=== PATIENT | female | born 1950 | race Caucasian/White ===

== ENCOUNTER 2016-06-09 15:11 | Inpatient (IN) | payer MEDICARE ==
[2016-06-09] MEDS ORDERED: ACETAMINOPHEN TAB 500 MG TAB PO STA (16:23)
[2016-06-09] MEDS ORDERED: IBUPROFEN 600 MG TAB PO STA (16:23)
--- NOTE | 2016-06-09 16:34 | ED ---
General Adult HPI - General Chief complaint: Fever Stated complaint: Weakness, Vomiting Time Seen by Provider: 06/09/16 15:30 Source: patient, family, RN notes reviewed Mode of arrival: wheelchair - History of Present Illness Initial comments: This is a 65-year-old female who presents emergency department stating that she does not feel well. Patient states she hasn't been feeling well for 2 weeks. Patient states she's had about 2 weeks' worth of dysuria and more recently started to have chills. Patient states she did not take her temperature at home. Patient states chills she believes started about a week ago. Patient denies headache patient denies numbness weakness. Patient denies any lightheadedness dizziness or near-syncopal episode. Patient denies any chest pain palpation difficult breathing or shortness breath per patient denies any abdominal pain. Patient denies any back pain. Patient denies any redness or erythema erythema or areas of rash or lesions. Patient denies any diarrhea. - Related Data Home Medications Medication Instructions Recorded Confirmed Acetaminophen Tab [Tylenol Tab] 1,000 mg PO Q6HR PRN 06/09/16 06/09/16 Albuterol Sulfate [Proair Hfa] 1 - 2 puff INHALATION RT-Q6H PRN 06/09/16 Alendronate Sodium [Fosamax] 10 mg PO DAILY 06/09/16 06/09/16 Gabapentin [Neurontin] 300 mg PO TID PRN 06/09/16 06/09/16 Levocetirizine Dihydrochloride 5 mg PO HS 06/09/16 06/09/16 [Xyzal] Montelukast Sodium [Singulair] 10 mg PO HS 06/09/16 06/09/16 Omeprazole [PriLOSEC] 20 mg PO AC-BRKFST 06/09/16 06/09/16 Topiramate [Topamax] 25 mg PO HS 06/09/16 06/09/16 rOPINIRole HCL [Requip Xl] 12 mg PO HS 06/09/16 06/09/16 Allergies Allergy/AdvReac Type Severity Reaction Status Date / Time Penicillins Allergy Rash/Hives Verified 06/09/16 16:05 Review of Systems ROS Statement: Those systems with pertinent positive or pertinent negative responses have been documented in the HPI. ROS Other: All systems not noted in ROS Statement are negative. Past Medical History Past Medical History: COPD Additional Past Medical History / Comment(s): hernia, restless leg syndrome History of Any Multi-Drug Resistant Organisms: None Reported Past Surgical History: Hysterectomy Past Psychological History: No Psychological Hx Reported Smoking Status: Former smoker Past Alcohol Use History: Rare Past Drug Use History: None Reported General Exam - General Exam Comments Initial Comments: GENERAL: Patient is well-developed and well-nourished. Patient is nontoxic and well- hydrated and is in mild distress. ENT: Neck is soft and supple. No significant lymphadenopathy is noted. Oropharynx is clear. Moist mucous membranes. Neck has full range of motion without eliciting any pain. EYES: The sclera were anicteric and conjunctiva were pink and moist. Extraocular movements were intact and pupils were equal round and reactive to light. Eyelids were unremarkable. PULMONARY: Unlabored respirations. Good breath sounds bilaterally. No audible rales rhonchi or wheezing was noted. CARDIOVASCULAR: There is a regular rate and rhythm without any murmurs gallops or rubs. ABDOMEN: Soft and nontender with normal bowel sounds. No palpable organomegaly was noted. There is no palpable pulsatile mass. SKIN: Skin is clear with no lesions or rashes and otherwise unremarkable. NEUROLOGIC: Patient is alert and oriented x3. Cranial nerves II through XII are grossly intact. Motor and sensory are also intact. Normal speech, volume and content. Symmetrical smile. MUSCULOSKELETAL: Normal extremities with adequate strength and full range of motion. LYMPHATICS: No significant lymphadenopathy is noted PSYCHIATRIC: Normal psychiatric evaluation. Course Vital Signs 06/09/16 06/09/16 06/09/16 15:29 15:50 16:20 Temperature 100.7 F H Pulse Rate 112 H 102 H 98 Respiratory 18 Rate Blood Pressure 75/52 99/55 95/52 O2 Sat by Pulse 92 L 93 L 93 L Oximetry 06/09/16 06/09/16 06/09/16 16:50 17:30 18:12 Temperature 100.0 F H Pulse Rate 96 91 Respiratory 18 Rate Blood Pressure 120/56 105/58 O2 Sat by Pulse 98 94 L Oximetry 06/09/16 06/09/16 19:12 19:36 Temperature 98.2 F 97.9 F Pulse Rate 88 90 Respiratory 18 18 Rate Blood Pressure 88/55 106/57 O2 Sat by Pulse 95 Oximetry Medical Decision Making - Medical Decision Making EKG shows sinus tachycardia at 105 bpm MT interval is 134 QRS is 88 QT interval 342 QTC is 452. Patient's EKG shows no ST segment elevation or depression or T- wave abnormality is noted. - Lab Data Result diagrams: 06/09/16 16:03 06/09/16 16:03 Lab Results 06/09/16 06/09/16 06/09/16 Range/Units 16:03 16:03 16:03 WBC 10.0 (3.8-10.6) k/uL RBC 4.28 (3.80-5.40) m/uL Hgb 13.3 (11.4-16.0) gm/dL Hct 39.1 (34.0-46.0) % MCV 91.4 D (80.0-100.0) fL MCH 31.0 (25.0-35.0) pg MCHC 33.9 (31.0-37.0) g/dL RDW 14.8 (11.5-15.5) % Plt Count 171 (150-450) k/uL Neutrophils % 96 % Lymphocytes % 2 % Monocytes % 2 % Eosinophils % 0 % Basophils % 0 % Neutrophils # 9.5 H (1.3-7.7) k/uL Lymphocytes # 0.2 L (1.0-4.8) k/uL Monocytes # 0.2 (0-1.0) k/uL Eosinophils # 0.0 (0-0.7) k/uL Basophils # 0.0 (0-0.2) k/uL PT (9.0-12.0) sec INR (<1.1) APTT (22.0-30.0) sec Sodium 138 (137-145) mmol/L Potassium 3.7 (3.5-5.1) mmol/L Chloride 106 (98-107) mmol/L Carbon Dioxide 17 L (22-30) mmol/L Anion Gap 15 mmol/L BUN 18 H (7-17) mg/dL Creatinine 1.00 (0.52-1.04) mg/dL Est GFR (MDRD) Af Amer >60 (>60 ml/min/1.73 sqM) Est GFR (MDRD) Non-Af 55 (>60 ml/min/1.73 sqM) Glucose 119 H (74-99) mg/dL Plasma Lactic Acid Timothy 1.1 (0.7-2.0) mmol/L Calcium 9.3 (8.4-10.2) mg/dL Total Bilirubin 0.8 (0.2-1.3) mg/dL AST 34 (14-36) U/L ALT 33 (9-52) U/L Alkaline Phosphatase 68 (38-126) U/L Total Protein 7.2 (6.3-8.2) g/dL Albumin 4.1 (3.5-5.0) g/dL Urine Color Urine Appearance (Clear) Urine pH (5.0-8.0) Ur Specific [place] (1.001-1.035) Urine Protein (Negative) Urine Glucose (UA) (Negative) Urine Ketones (Negative) Urine Blood (Negative) Urine Nitrite (Negative) Urine Bilirubin (Negative) Urine Urobilinogen (<2.0) mg/dL Ur Leukocyte Esterase (Negative) Urine RBC (0-5) /hpf Urine WBC (0-5) /hpf Ur Squamous Epith Cells (0-4) /hpf Urine Bacteria (None) /hpf Hyaline Casts (0-2) /lpf Urine Mucus (None) /hpf Influenza Type A RNA (Not Detectd) Influenza Type B (PCR) (Not Detectd) 06/09/16 06/09/16 06/09/16 Range/Units 16:03 17:07 17:07 WBC (3.8-10.6) k/uL RBC (3.80-5.40) m/uL Hgb (11.4-16.0) gm/dL Hct (34.0-46.0) % MCV (80.0-100.0) fL MCH (25.0-35.0) pg MCHC (31.0-37.0) g/dL RDW (11.5-15.5) % Plt Count (150-450) k/uL Neutrophils % % Lymphocytes % % Monocytes % % Eosinophils % % Basophils % % Neutrophils # (1.3-7.7) k/uL Lymphocytes # (1.0-4.8) k/uL Monocytes # (0-1.0) k/uL Eosinophils # (0-0.7) k/uL Basophils # (0-0.2) k/uL PT 11.4 (9.0-12.0) sec INR 1.1 (<1.1) APTT 26.8 (22.0-30.0) sec Sodium (137-145) mmol/L Potassium (3.5-5.1) mmol/L Chloride (98-107) mmol/L Carbon Dioxide (22-30) mmol/L Anion Gap mmol/L BUN (7-17) mg/dL Creatinine (0.52-1.04) mg/dL Est GFR (MDRD) Af Amer (>60 ml/min/1.73 sqM) Est GFR (MDRD) Non-Af (>60 ml/min/1.73 sqM) Glucose (74-99) mg/dL Plasma Lactic Acid Timothy (0.7-2.0) mmol/L Calcium (8.4-10.2) mg/dL Total Bilirubin (0.2-1.3) mg/dL AST (14-36) U/L ALT (9-52) U/L Alkaline Phosphatase (38-126) U/L Total Protein (6.3-8.2) g/dL Albumin (3.5-5.0) g/dL Urine Color Yellow Urine Appearance Cloudy H (Clear) Urine pH 5.5 (5.0-8.0) Ur Specific [place] 1.021 (1.001-1.035) Urine Protein 1+ H (Negative) Urine Glucose (UA) Negative (Negative) Urine Ketones 2+ H (Negative) Urine Blood Small H (Negative) Urine Nitrite Negative (Negative) Urine Bilirubin Negative (Negative) Urine Urobilinogen 3.0 (<2.0) mg/dL Ur Leukocyte Esterase Moderate H (Negative) Urine RBC 9 H (0-5) /hpf Urine WBC 24 H (0-5) /hpf Ur Squamous Epith Cells 27 H (0-4) /hpf Urine Bacteria Few H (None) /hpf Hyaline Casts 5 H (0-2) /lpf Urine Mucus Moderate H (None) /hpf Influenza Type A RNA Not Detected (Not Detectd) Influenza Type B (PCR) Not Detected (Not Detectd) Disposition Clinical Impression: Hypotension, Weakness, Dehydration, UTI (urinary tract infection) Disposition: ADMITTED IP TO THIS [facility] Time of Disposition: 20:46
[2016-06-09] MEDS: SODIUM CHLORIDE 0.9% 500 ML IV SCH ×3 (16:38→17:25)
[2016-06-09 16:41] LABS: Basophils % (A) 0 %; CH 29.8; CHCM 32.8; Eosinophils % (A) 0 %; HCT 39.1 % (34.0-46.0); HDW 2.89; HGB 13.3 gm/dL (11.4-16.0); Luc # (Auto) 0.02; Luc % (Auto) 0; Lymphocytes # (A) 0.2 k/uL (1.0-4.8); Lymphocytes % (A) 2 %; MCHC 33.9 g/dL (31.0-37.0); Mean Platelet Volume 7.1; Monocytes # (A) 0.2 k/uL (0-1.0); Monocytes % (A) 2 %; Neutrophils # (A) 9.5 k/uL (1.3-7.7); Neutrophils % (A) 96 %; RBC 4.28 m/uL (3.80-5.40); RDW 14.8 % (11.5-15.5); WBC (Perox) 10.21
[2016-06-09 16:42] LABS: MCV 91.4 fL (80.0-100.0)
[2016-06-09 16:46] LABS: INR 1.1 (<1.1)
[2016-06-09 16:47] LABS: Partial Thromboplastin Time 26.8 sec (22.0-30.0); Prothrombin Time 11.4 sec (9.0-12.0)
[2016-06-09 16:48] LABS: ALT 33 U/L (9-52); AST 34 U/L (14-36); Alkaline Phosphatase 68 U/L (38-126); Anion Gap 15 mmol/L; Blood Urea Nitrogen 18 mg/dL (7-17); Calcium 9.3 mg/dL (8.4-10.2); Carbon Dioxide 17 mmol/L (22-30); Chloride 106 mmol/L (98-107); Glucose 119 mg/dL (74-99); Non-African American GFR(MDRD) 55 (>60 ml/min/1.73 sqM); Potassium 3.7 mmol/L (3.5-5.1); Sodium 138 mmol/L (137-145); Total Bilirubin 0.8 mg/dL (0.2-1.3); Total Protein 7.2 g/dL (6.3-8.2)
[2016-06-09 17:19] LABS: Appearance,Urine Cloudy (Clear); Bacteria,Urine Few /hpf; Bilirubin,Urine Negative (Negative); Glucose,Urine (UA) Negative (Negative); Ketones,Urine 2+ (Negative); Leukocyte Esterase,Urine Moderate (Negative); Mucus,Urine Moderate /hpf; Nitrite,Urine Negative (Negative); PH, Urine 5.5 (5.0-8.0); Particle Count 13490; Protein,Urine 1+ (Negative); RBC,Urine 9 /hpf (0-5); Specific Gravity,Urine 1.021 (1.001-1.035); Squamous Epithelial Cell,Urine 27 /hpf (0-4); UA Billing (MACRO vs. MICRO) MICRO; WBC,Urine 24 /hpf (0-5)
[2016-06-09] MEDS ORDERED: SODIUM CHLORIDE 0.9% 500 ML IV ONE (19:08)
--- NOTE | 2016-06-09 19:50 | XR ---
EXAMINATION TYPE: XR chest 2V DATE OF EXAM: 06/09/2016 7:44 PM COMPARISON: NONE HISTORY: Difficulty in breathing. TECHNIQUE: Frontal and lateral views of the chest are obtained. FINDINGS: There is chronic parenchymal change without suspicious focal air space opacity, pleural ef fusion, or pneumothorax seen. Nodularity left lung bases hyperdense suspect calcified granulomas, sim ilar lesion seen right hilar level. The cardiac silhouette size is within normal limits with atherosc lerotic thoracic aorta. The osseous structures are somewhat demineralized. IMPRESSION: Chronic parenchymal changes without acute pulmonary process.
[2016-06-09] MEDS ORDERED: HYDROmorphone 1 MG/ML 1 ML SYRINGE IVP STA (20:37)
[2016-06-09] MEDS: SODIUM CHLORIDE 0.9% 1,000 ML IV ONE (20:48)
[2016-06-09 22:10] VITALS: BMI 22.1
[2016-06-09] MEDS ORDERED: ALBUTEROL NEBULIZED 2.5 MG/3 ML INHALATION PRN (22:37)
[2016-06-09] MEDS ORDERED: ACETAMINOPHEN TAB 500 MG TAB PO PRN (22:37)
[2016-06-09] MEDS ORDERED: LORATADINE 10 MG TAB PO SCH (22:45)
[2016-06-09] MEDS: TOPIRAMATE 25 MG TAB PO SCH (23:42)
[2016-06-09] MEDS: rOPINIRole HCL 4 MG TABLET PO SCH (23:42)
[2016-06-09] MEDS: MONTELUKAST 10 MG TAB PO SCH (23:42)
[2016-06-10] MEDS: PANTOPRAZOLE 40 MG TABLET PO SCH (07:19)
[2016-06-10] MEDS ORDERED: ALENDRONATE SODIUM 10 MG PO SCH (09:00)
[2016-06-10] MEDS ORDERED: ONDANSETRON 4 MG/2 ML VIAL IVP PRN (09:57)
[2016-06-10] MEDS ORDERED: IV VANCOMYCIN PER PHARMACY 1 EACH MISC MISCELLANE PRN ×2 (09:58→11:00)
[2016-06-10] MEDS: rOPINIRole HCL 4 MG TABLET PO SCH ×3 (10:08→20:42)
[2016-06-10] MEDS ORDERED: VANCOMYCIN 1,250 MG in SODIUM CHLORIDE 0.9% 250 ML IVPB ONE (11:00)
[2016-06-10] MEDS ORDERED: SODIUM CHLORIDE 0.9% IV ONE (11:00)
[2016-06-10] MEDS: SODIUM CHLORIDE 0.9% 1,000 ML IV ONE (11:26)
[2016-06-10] MEDS: ACETAMINOPHEN TAB 325 MG TAB PO PRN ×3 (11:28→23:15)
--- NOTE | 2016-06-10 11:56 | P.HPIM ---
History of Present Illness H&P Date: 06/10/16 Chief Complaint: Not feeling well This is a 65-year-old female with past medical history noted below who presented to the emergency room with a chief complaint of not feeling well. Today when I saw her, patient appeared restless. She said that she does not feel well at all. When I asked her to pinpoint what's bothering her particular she never gave me a straight answers. Patient said that for the past week or 2 she was feeling progressively weak. Her main concern was increasing urinary frequency. She was also having chills and episodes when she gets too hot and then to cold. She denies any significant cough. No abdominal pain. She said that she is mostly constipated and does not have regular bowel movement. She was evaluated in the emergency room and was found to have a low-grade temperature on presentation. Urinalysis was positive for underlying UTI but unfortunately was not a clean catch urine. Patient was admitted to the hospital and started on IV ceftriaxone. This morning she was noted to be very warm and her temperature was recorded to be 102.2. Blood culture came back positive for gram-positive cocci in clusters. Review of Systems Review of system: 14 points review of systems were obtained and were negative except to what were mentioned in the HPI. Past Medical History Past Medical History: COPD Additional Past Medical History / Comment(s): hernia, restless leg syndrome History of Any Multi-Drug Resistant Organisms: None Reported Past Surgical History: Hysterectomy Past Psychological History: No Psychological Hx Reported Smoking Status: Former smoker Past Alcohol Use History: Rare Past Drug Use History: None Reported - Past Family History Mother Family Medical History: Cancer Medications and Allergies Home Medications Medication Instructions Recorded Confirmed Type Acetaminophen Tab [Tylenol Tab] 1,000 mg PO Q6HR PRN 06/09/16 06/09/16 History Albuterol Sulfate [Proair Hfa] 1 - 2 puff INHALATION RT-Q6H PRN 06/09/16 History Alendronate Sodium [Fosamax] 10 mg PO DAILY 06/09/16 06/09/16 History Gabapentin [Neurontin] 300 mg PO TID PRN 06/09/16 06/09/16 History Levocetirizine Dihydrochloride 5 mg PO HS 06/09/16 06/09/16 History [Xyzal] Montelukast Sodium [Singulair] 10 mg PO HS 06/09/16 06/09/16 History Omeprazole [PriLOSEC] 20 mg PO AC-BRKFST 06/09/16 06/09/16 History Topiramate [Topamax] 25 mg PO HS 06/09/16 06/09/16 History rOPINIRole HCL [Requip Xl] 12 mg PO HS 06/09/16 06/09/16 History Allergies Allergy/AdvReac Type Severity Reaction Status Date / Time Penicillins Allergy Rash/Hives Verified 06/09/16 16:05 Physical Exam Vitals: Vital Signs Temp Pulse Pulse Resp BP BP Pulse Ox 06/10/16 11:19 102.1 F H 110 H 16 147/78 92 L 06/10/16 09:50 98.8 F 110 H 16 142/76 94 L 06/10/16 04:00 98.6 F 96 16 100/51 93 L 06/10/16 00:00 97.0 F L 100 16 106/64 98 06/09/16 21:34 98.6 F 88 18 100/52 100 06/09/16 21:10 88 20 90/56 98 06/09/16 21:05 99.2 F 89 18 100/61 97 Intake and Output 06/09/16 06/10/16 06/10/16 22:59 06:59 14:59 Intake Total 2268 Balance 2268 Intake: IV 1000 Sodium Chloride 0.9% ( 1000 Dehp Star 1,000 ml @ 999 mls/hr IV .Q1H1M ONE Rx#: [id number] Intake, IV Titration 1150 Amount Sodium Chloride 0.9% 1, 800 000 ml @ 100 mls/hr IV . Q10H ONE Rx#:[id number] Vancomycin 1,250 mg In 250 Sodium Chloride 0.9% 250 ml @ 125 mls/hr IVPB Q16H [facility] Rx#:[id number] cefTRIAXone 1,000 mg In 100 Sodium Chloride 0.9% 50 ml @ 100 mls/hr IVPB Q24HR [facility] Rx#:[id number] Oral 118 Other: Voiding Method Toilet # Voids 1 2 Weight 64 kg 64.2 kg General: The patient is awake and alert, in no distress, and does not appear acutely ill. Eye: extra-ocular movements are intact; there is normal conjunctiva bilaterally. . Neck: The neck is supple, there is no tenderness or JVD. Cardiovascular: Normal S1-S2, no S3-S4, no murmurs. Respiratory: Lungs clear to auscultation bilaterally with no wheezes rhonchi or rales. Gastrointestinal: Abdomen is soft, nontender, nondistended, with no organomegaly. . Musculoskeletal: Normal ROM, no tenderness, There is no pedal edema. Neurological: There are no obvious motor or sensory deficits. Speech is normal. Skin: Skin is warm and dry and no rashes or lesions are noted. Results CBC & Chem 7: 06/09/16 16:03 06/09/16 16:03 Thrombosis Risk Factor Assmnt - Choose All That Apply Each Factor Represents 1 point: Abnormal pulmonary function (COPD) Each Risk Factor Represents 2 Points: Age 61-74 years Thrombosis Risk Factor Assessment Total Risk Factor Score: 3 Thrombosis Risk Factor Assessment Level: Moderate Risk Assessment and Plan Plan: 1. Sepsis: Without septic shock. Lactic acid was normal. Most likely sources underlying UTI. Currently on IV ceftriaxone awaiting urine culture. 2. Bacteremia, with gram-positive cocci in cluster. Repeat blood culture ordered. Currently on IV vancomycin. Unclear if this is contamination awaiting cultures to finalize 3. Mild intermittent asthma: With no evidence of exacerbation 4. Osteoporosis 5. GI and DVT prophylaxis Today, I reviewed her medication list and lab work results. I ordered 0.9 normal saline 1 L IV bolus. Continue antibiotic with IV ceftriaxone and vancomycin awaiting cultures to finalize. Infectious disease consulted for further evaluation. Chest x-ray was unremarkable. Influenza screening was negative as well.
[2016-06-10] MEDS: GABAPENTIN 300 MG CAP PO PRN (17:43)
[2016-06-10] MEDS: MONTELUKAST 10 MG TAB PO SCH (20:42)
[2016-06-10] MEDS: TOPIRAMATE 25 MG TAB PO SCH (20:42)
[2016-06-10] MEDS: HEPARIN SODIUM,PORCINE 5,000 UNIT/ML 1 ML VIAL SQ SCH (20:42)
--- NOTE | 2016-06-10 22:42 | P.CONS ---
History of Present Illness - Reason for Consult Consult date: 06/10/16 - Chief Complaint Fever - History of Present Illness 65-year-old woman who is somewhat of a poor historian presents emergency center not feeling well for the last several weeks. Apparently she has had some difficulties with fever and chills throughout this time frame. She thinks she' s had some dysuria. She's had some shortness of breath with some cough. She's felt quite poorly with difficulty performing her ADLs. Apparently her family came by and insisted that she seek medical care. Evidence of Temperature 102.2 and Presented to the Emergency Center. At this time she continues to feel poorly. She remains weak. She's been able to eat without nausea or emesis. She denying hematemesis or melena. Denies abdominal pain. Review of Systems HEENT:Denies headache or acute visual change. Denies sinus or mouth discomforts. Denies neck stiffness or pain. Denies significant oral cavity pain. Denies difficulty on swallowing. Lungs: Mild shortness of breath with cough, sputum production or hemoptysis Cardiovascular: Denies significant shortness of breath, chest pain, chest wall pain, orthopnea, dyspnea on exertion, syncope Gastrointestinal:Denies nausea, vomiting, diarrhea, constipation, hematemesis, melena, hematochezia. No no significant change of bowel habit noticed. Musculoskeletal: denies significant myalgias or arthralgias. No new joint swelling. Denies new back pain. Skin: Denies new rash or lesions. No new ulcers or wounds are related.. Neuro: Denies headache or visual change. Denies any new onset weakness or difficulty with ambulation. Denies falls or seizures. Psychiatric:Denies anxiety or depression. Endocrine: Significant fatigue but no weight gain Past Medical History Past Medical History: COPD Additional Past Medical History / Comment(s): hernia, restless leg syndrome History of Any Multi-Drug Resistant Organisms: None Reported Past Surgical History: Hysterectomy Past Psychological History: No Psychological Hx Reported Additional Psychological History / Comment(s): lives in the family home with her . lifelong nonsmoker. 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 No animal exposures. No travel Smoking Status: Former smoker Past Alcohol Use History: Rare Past Drug Use History: None Reported - Past Family History Mother Family Medical History: Cancer Medications and Allergies Home Medications and Allergies Comment(s): Current Medications Acetaminophen (Tylenol Tab) 650 mg PO Q6HR PRN PRN Reason: Fever and/ or Pain Last Admin: 06/10/16 17:42 Dose: 650 mg Albuterol Sulfate (Ventolin Nebulized) 2.5 mg INHALATION RT-Q6H PRN PRN Reason: Shortness Of Breath Gabapentin (Neurontin) 300 mg PO TID PRN PRN Reason: Pain Last Admin: 06/10/16 17:43 Dose: 300 mg Heparin Sodium (Porcine) (Heparin) 5,000 unit SQ Q12HR [facility] Last Admin: 06/10/16 20:42 Dose: 5,000 unit Ceftriaxone Sodium 1,000 mg/ (Sodium Chloride) 50 mls @ 100 mls/hr IVPB Q24HR [facility] Last Admin: 06/10/16 10:08 Dose: 100 mls/hr Vancomycin HCl 1,250 mg/ (Sodium Chloride) 250 mls @ 125 mls/hr IVPB Q16H [facility] Montelukast Sodium (Singulair) 10 mg PO [facility] Last Admin: 06/10/16 20:42 Dose: 10 mg Non-Formulary Medication (Alendronate Sodium [Fosamax]) 10 mg PO DAILY [facility] Ondansetron HCl (Zofran) 4 mg IVP Q6HR PRN PRN Reason: Nausea And Vomiting Pantoprazole Sodium (Protonix) 40 mg PO AC-BRKFST [facility] Last Admin: 06/10/16 07:19 Dose: 40 mg Ropinirole HCl (Requip) 4 mg PO TID [facility] Last Admin: 06/10/16 20:42 Dose: 4 mg Topiramate (Topamax) 25 mg PO [facility] Last Admin: 06/10/16 20:42 Dose: 25 mg Home Medications Medication Instructions Recorded Confirmed Type Acetaminophen Tab [Tylenol Tab] 1,000 mg PO Q6HR PRN 06/09/16 06/09/16 History Albuterol Sulfate [Proair Hfa] 1 - 2 puff INHALATION RT-Q6H PRN 06/09/16 History Alendronate Sodium [Fosamax] 10 mg PO DAILY 06/09/16 06/09/16 History Gabapentin [Neurontin] 300 mg PO TID PRN 06/09/16 06/09/16 History Levocetirizine Dihydrochloride 5 mg PO HS 06/09/16 06/09/16 History [Xyzal] Montelukast Sodium [Singulair] 10 mg PO HS 06/09/16 06/09/16 History Omeprazole [PriLOSEC] 20 mg PO AC-BRKFST 06/09/16 06/09/16 History Topiramate [Topamax] 25 mg PO HS 06/09/16 06/09/16 History rOPINIRole HCL [Requip Xl] 12 mg PO HS 06/09/16 06/09/16 History Allergies Allergy/AdvReac Type Severity Reaction Status Date / Time Penicillins Allergy Rash/Hives Verified 06/09/16 16:05 Physical Exam Vitals: Vital Signs Temp Pulse Resp BP Pulse Ox 06/10/16 17:42 102 F H 06/10/16 15:15 100.2 F H 100 16 142/72 93 L 06/10/16 12:16 16 06/10/16 11:19 102.1 F H 110 H 16 147/78 92 L 06/10/16 09:50 98.8 F 110 H 16 142/76 94 L 06/10/16 04:00 98.6 F 96 16 100/51 93 L 06/10/16 00:00 97.0 F L 100 16 106/64 98 Intake and Output 06/10/16 06/10/16 06/10/16 06:59 14:59 22:59 Intake Total 2268 125 Output Total 200 400 Balance 2068 -275 Intake: IV 1000 Sodium Chloride 0.9% ( 1000 Dehp Star 1,000 ml @ 999 mls/hr IV .Q1H1M [facility] Rx#: [id number] Intake, IV Titration 1150 Amount Sodium Chloride 0.9% 1, 800 000 ml @ 100 mls/hr IV . Q10H [facility] Rx#:[id number] Vancomycin 1,250 mg In 250 Sodium Chloride 0.9% 250 ml @ 125 mls/hr IVPB Q16H [facility] Rx#:[id number] cefTRIAXone 1,000 mg In 100 Sodium Chloride 0.9% 50 ml @ 100 mls/hr IVPB Q24HR [facility] Rx#:[id number] Oral 118 125 Output: Urine 200 400 Other: Voiding Method Toilet Toilet # Voids 1 2 Weight 64.2 kg 65-year-old woman who looks older than her stated age. Appears mildly ill and somewhat restless HEENT: Anicteric conjunctiva are pink and moist nasal mucosa grossly intact without significant lesions, there is no thrush. Full denture Neck: The neck is supple without significant lymphadenopathy or thyromegaly. Lungs: Symmetrical air entry is noted. Few expiratory wheezes are heard. No bronchial sounds. No dullness no egophony or no change in tactile fremitus Heart: Regular rate and rhythm with an audible S1-S2, no S3 positive S4. There is no significant murmur click or rub, PMI was nondisplaced. Abdomen: Obese, Positive bowel sounds soft and nontender without palpable masses or organomegaly. There was no guarding or rebound. Extremities: The upper extremities have excellent pulses they are symmetric, no significant petechiae or telangiectasia. No splinter hemorrhages were noted. The lower extremities have minimal trace edema. The peripheral pulses were 2+ and symmetric. Neuro: Awake alert oriented to person place and time. There are no acute new gross focal sensory motor deficits. She seems to be a bit agitated Results CBC & Chem 7: 06/09/16 16:03 06/09/16 16:03 Labs: Laboratory Results WBC 10.0 k/uL (3.8-10.6) 06/09/16 16:03 RBC 4.28 m/uL (3.80-5.40) 06/09/16 16:03 Hgb 13.3 gm/dL (11.4-16.0) 06/09/16 16:03 Hct 39.1 % (34.0-46.0) 06/09/16 16:03 MCV 91.4 fL (80.0-100.0) D 06/09/16 16:03 MCH 31.0 pg (25.0-35.0) 06/09/16 16:03 MCHC 33.9 g/dL (31.0-37.0) 06/09/16 16:03 RDW 14.8 % (11.5-15.5) 06/09/16 16:03 Plt Count 171 k/uL (150-450) 06/09/16 16:03 Neutrophils % 96 % 06/09/16 16:03 Lymphocytes % 2 % 06/09/16 16:03 Monocytes % 2 % 06/09/16 16:03 Eosinophils % 0 % 06/09/16 16:03 Basophils % 0 % 06/09/16 16:03 Neutrophils # 9.5 k/uL (1.3-7.7) H 06/09/16 16:03 Lymphocytes # 0.2 k/uL (1.0-4.8) L 06/09/16 16:03 Monocytes # 0.2 k/uL (0-1.0) 06/09/16 16:03 Eosinophils # 0.0 k/uL (0-0.7) 06/09/16 16:03 Basophils # 0.0 k/uL (0-0.2) 06/09/16 16:03 PT 11.4 sec (9.0-12.0) 06/09/16 16:03 INR 1.1 (<1.1) 06/09/16 16:03 APTT 26.8 sec (22.0-30.0) 06/09/16 16:03 Sodium 138 mmol/L (137-145) 06/09/16 16:03 Potassium 3.7 mmol/L (3.5-5.1) 06/09/16 16:03 Chloride 106 mmol/L (98-107) 06/09/16 16:03 Carbon Dioxide 17 mmol/L (22-30) L 06/09/16 16:03 Anion Gap 15 mmol/L 06/09/16 16:03 BUN 18 mg/dL (7-17) H 06/09/16 16:03 Creatinine 1.00 mg/dL (0.52-1.04) 06/09/16 16:03 Est GFR (MDRD) Af Amer >60 (>60 ml/min/1.73 sqM) 06/09/16 16:03 Est GFR (MDRD) Non-Af 55 (>60 ml/min/1.73 sqM) 06/09/16 16:03 Glucose 119 mg/dL (74-99) H 06/09/16 16:03 Plasma Lactic Acid Timothy 1.4 mmol/L (0.7-2.0) 06/10/16 11:22 Calcium 9.3 mg/dL (8.4-10.2) 06/09/16 16:03 Total Bilirubin 0.8 mg/dL (0.2-1.3) 06/09/16 16:03 AST 34 U/L (14-36) 06/09/16 16:03 ALT 33 U/L (9-52) 06/09/16 16:03 Alkaline Phosphatase 68 U/L (38-126) 06/09/16 16:03 Total Protein 7.2 g/dL (6.3-8.2) 06/09/16 16:03 Albumin 4.1 g/dL (3.5-5.0) 06/09/16 16:03 Urine Color Yellow 06/09/16 17:07 Urine Appearance Cloudy (Clear) H 06/09/16 17:07 Urine pH 5.5 (5.0-8.0) 06/09/16 17:07 Ur Specific [place] 1.021 (1.001-1.035) 06/09/16 17:07 Urine Protein 1+ (Negative) H 06/09/16 17:07 Urine Glucose (UA) Negative (Negative) 06/09/16 17:07 Urine Ketones 2+ (Negative) H 06/09/16 17:07 Urine Blood Small (Negative) H 06/09/16 17:07 Urine Nitrite Negative (Negative) 06/09/16 17:07 Urine Bilirubin Negative (Negative) 06/09/16 17:07 Urine Urobilinogen 3.0 mg/dL (<2.0) 06/09/16 17:07 Ur Leukocyte Esterase Moderate (Negative) H 06/09/16 17:07 Urine RBC 9 /hpf (0-5) H 06/09/16 17:07 Urine WBC 24 /hpf (0-5) H 06/09/16 17:07 Ur Squamous Epith Cells 27 /hpf (0-4) H 06/09/16 17:07 Urine Bacteria Few /hpf (None) H 06/09/16 17:07 Hyaline Casts 5 /lpf (0-2) H 06/09/16 17:07 Urine Mucus Moderate /hpf (None) H 06/09/16 17:07 Influenza Type A RNA Not Detected (Not Detectd) 06/09/16 17:07 Influenza Type B (PCR) Not Detected (Not Detectd) 06/09/16 17:07 Microbiology 06/09/16 16:03 Blood Blood Culture Gram Stain - Preliminary 06/09/16 16:03 Blood Blood Culture - Preliminary 06/09/16 17:07 Urine,Clean Catch Urine Culture - Preliminary Assessment and Plan (1) Sepsis Narrative/Plan: 65-year-old woman who has a history of underlying lung disease presents to Hospital not feeling well. His related that over the last 2 weeks she's been not feeling well. She's been a bit agitated and having increasing weakness. Started to have some troubles with her ADLs. The appears her family suggested she come to Hospital she had 102.2 fever. Workup has been initiated. In is on the blood cultures positive for gram-positive cocci and urine culture is pending. Urinalysis did have contamination with many squamous cells. The patient does have a history of prior urinary infections. She does not have evidence of renal failure. Chest x-ray fails reveal evidence of pneumonia At this time patient appears to have sepsis possibly urinary source since her is somewhat of a history of this. Blood culture is positive for gram-positive cocci and unclear if this is enterococcus staph or strep. Well pending vancomycin has been added. She also was placed on Rocephin because there is concerns to gram-negative urinary infection, she does believe she's had prior treatments in the past and would be concerned about fluoroquinolone resistant E. coli or similar. If she does not improve will plan ultrasounding her kidneys to make sure that there is not an obstructive process occurring Follow blood cultures been requested to ensure this is rapidly. His potential to contamination. If however it turns out to be staph aureus within also consider echocardiogram has not been done recently. Status: Acute (2) Gram-positive bacteremia Status: Acute (3) Fever Status: Acute (4) UTI (urinary tract infection) Status: Acute
[2016-06-11] MEDS ORDERED: VANCOMYCIN 1,250 MG in SODIUM CHLORIDE 0.9% 250 ML IVPB SCH ×2
[2016-06-11] MEDS: ACETAMINOPHEN TAB 325 MG TAB PO PRN ×3 (05:46→23:40)
[2016-06-11] MEDS: PANTOPRAZOLE 40 MG TABLET PO SCH (05:46)
[2016-06-11 06:09] LABS: Basophils % (A) 0 %; CH 30.3; CHCM 31.9; Eosinophils % (A) 0 %; HCT 37.4 % (34.0-46.0); HDW 2.99; HGB 11.7 gm/dL (11.4-16.0); Hypochromasia Slight; Luc # (Auto) 0.08; Luc % (Auto) 2; Lymphocytes # (A) 0.6 k/uL (1.0-4.8); Lymphocytes % (A) 10 %; MCH 29.8 pg (25.0-35.0); MCHC 31.2 g/dL (31.0-37.0); MCV 95.5 fL (80.0-100.0); Mean Platelet Volume 7.3; Monocytes # (A) 0.1 k/uL (0-1.0); Monocytes % (A) 2 %; Neutrophils # (A) 4.6 k/uL (1.3-7.7); Neutrophils % (A) 86 %; RBC 3.91 m/uL (3.80-5.40); RDW 15.2 % (11.5-15.5); WBC 5.4 k/uL (3.8-10.6); WBC (Perox) 6.24
[2016-06-11 06:15] LABS: Anion Gap 9 mmol/L; Blood Urea Nitrogen 13 mg/dL (7-17); Calcium 8.1 mg/dL (8.4-10.2); Carbon Dioxide 19 mmol/L (22-30); Chloride 110 mmol/L (98-107); Glucose 89 mg/dL (74-99); Non-African American GFR(MDRD) >60 (>60 ml/min/1.73 sqM); Potassium 3.8 mmol/L (3.5-5.1); Sodium 138 mmol/L (137-145)
[2016-06-11] MEDS: rOPINIRole HCL 4 MG TABLET PO SCH ×3 (08:44→21:54)
[2016-06-11] MEDS: HEPARIN SODIUM,PORCINE 5,000 UNIT/ML 1 ML VIAL SQ SCH ×2 (08:44→21:25)
[2016-06-11] MEDS ORDERED: KETOROLAC 30 MG/ML 1 ML VIAL IVP STA (11:45)
[2016-06-11] MEDS: VANCOMYCIN 1,250 MG in SODIUM CHLORIDE 0.9% 250 ML IVPB SCH ×2 (12:07→23:38)
[2016-06-11] MEDS: LORATADINE 10 MG TAB PO SCH (12:08)
--- NOTE | 2016-06-11 12:53 | P.PN ---
Subjective Patient is feeling slightly better today. She continued to spike fever all day yesterday. Objective - Vital Signs Vital signs: Vital Signs Temp 96.6 F L 06/11/16 08:40 Pulse 110 H 06/11/16 12:00 Resp 18 06/11/16 12:00 BP 160/92 06/11/16 12:00 Pulse Ox 91 L 06/11/16 12:00 Intake & Output 06/10/16 06/11/16 06/11/16 18:59 06:59 18:59 Intake Total 2393 1850 818 Output Total 600 800 600 Balance 1793 1050 218 Weight 65.3 kg Intake: IV 1000 1850 250 Sodium Chloride 0.9% ( 1000 Dehp Star 1,000 ml @ 999 mls/hr IV .Q1H1M [facility] Rx#: [id number] Sodium Chloride 0.9% 1, 1600 000 ml @ 100 mls/hr IV . Q10H [facility] Rx#:[id number] Vancomycin 1,250 mg In 250 250 Sodium Chloride 0.9% 250 ml @ 125 mls/hr IVPB ONCE [facility] Rx#:[id number] Intake, IV Titration 1150 50 Amount Sodium Chloride 0.9% 1, 800 000 ml @ 100 mls/hr IV . Q10H [facility] Rx#:[id number] Vancomycin 1,250 mg In 250 Sodium Chloride 0.9% 250 ml @ 125 mls/hr IVPB Q16H [facility] Rx#:[id number] cefTRIAXone 1,000 mg In 100 50 Sodium Chloride 0.9% 50 ml @ 100 mls/hr IVPB Q24HR [facility] Rx#:[id number] Oral 243 518 Output: Urine 600 800 600 Other: Voiding Method Toilet Toilet Toilet # Voids 2 - Exam General: The patient is awake and alert, in no distress Eye: there is normal conjunctiva bilaterally. Neck: The neck is supple, there is no JVD. Cardiovascular: Normal S1-S2, no S3-S4, no murmurs. Respiratory: Lungs clear to auscultation bilaterally Gastrointestinal: Abdomen is soft, nontender Musculoskeletal: There is no pedal edema. Neurological:. Speech is normal. Skin: Skin is warm and dry - Labs CBC & Chem 7: 06/11/16 05:48 06/11/16 05:48 Labs: Abnormal Lab Results - Last 24 Hours (Table) 06/11/16 06/11/16 Range/Units 05:48 05:48 Plt Count 101 L (150-450) k/uL Lymphocytes # 0.6 L (1.0-4.8) k/uL Chloride 110 H (98-107) mmol/L Carbon Dioxide 19 L (22-30) mmol/L Calcium 8.1 L (8.4-10.2) mg/dL Microbiology - Last 24 Hours (Table) 06/10/16 07:53 Blood Culture Gram Stain - Preliminary Blood 06/10/16 07:53 Blood Culture - Preliminary Blood Assessment and Plan Plan: 1. Sepsis: Without septic shock. Lactic acid was normal. 2. Bacteremia, with gram-positive cocci in cluster. Repeat blood culture remain positive yesterday. I would obtain another set today. exact source is unclear. Possibly underlying UTI. Would obtain echocardiogram for further evaluation. Appreciate infectious disease recommendations. continue broad spectrum antibiotic until cultures are finalized 3. Mild intermittent asthma: With no evidence of exacerbation 4. Osteoporosis 5. GI and DVT prophylaxis Today, I reviewed her medication list and lab work results. Continue antibiotic as recommended by infectious disease awaiting cultures to finalize. Chest x- ray was unremarkable. Influenza screening was negative as well. patient denies any history of IV drug use or recent dental procedures.
[2016-06-11] MEDS: TOPIRAMATE 25 MG TAB PO SCH (21:25)
[2016-06-11] MEDS: MONTELUKAST 10 MG TAB PO SCH (21:25)
--- NOTE | 2016-06-11 22:58 | P.PN ---
Subjective Principal diagnosis: Fever 65-year-old woman who is somewhat of a poor historian presents emergency center not feeling well for the last several weeks. Apparently she has had some difficulties with fever and chills throughout this time frame. She thinks she' s had some dysuria. She's had some shortness of breath with some cough. She's felt quite poorly with difficulty performing her ADLs. Apparently her family came by and insisted that she seek medical care. Evidence of Temperature 102.2 and Presented to the Emergency Center. At this time she continues to feel poorly. She remains weak. She's been able to eat without nausea or emesis. She denying hematemesis or melena. Denies abdominal pain. Objective - Vital Signs Vital signs: Vital Signs Temp 100 F H 06/11/16 16:21 Pulse 100 06/11/16 19:04 Resp 18 06/11/16 19:04 BP 151/77 06/11/16 16:21 Pulse Ox 94 L 06/11/16 16:21 Intake & Output 06/11/16 06/11/16 06/12/16 06:59 18:59 06:59 Intake Total 1850 1418 250 Output Total 800 600 Balance 1050 818 250 Weight 65.3 kg Intake: IV 1850 250 Sodium Chloride 0.9% 1, 1600 000 ml @ 100 mls/hr IV . Q10H [facility] Rx#:[id number] Vancomycin 1,250 mg In 250 250 Sodium Chloride 0.9% 250 ml @ 125 mls/hr IVPB ONCE [facility] Rx#:[id number] Intake, IV Titration 50 Amount cefTRIAXone 1,000 mg In 50 Sodium Chloride 0.9% 50 ml @ 100 mls/hr IVPB Q24HR [facility] Rx#:[id number] Oral 1118 250 Output: Urine 800 600 Other: Voiding Method Toilet Toilet Toilet # Voids 1 - Exam 65-year-old woman who looks older than her stated age. Appears mildly ill and somewhat restless HEENT: Anicteric conjunctiva are pink and moist nasal mucosa grossly intact without significant lesions, there is no thrush. Full denture Neck: The neck is supple without significant lymphadenopathy or thyromegaly. Lungs: Symmetrical air entry is noted. Few expiratory wheezes are heard. No bronchial sounds. No dullness no egophony or no change in tactile fremitus Heart: Regular rate and rhythm with an audible S1-S2, no S3 positive S4. There is no significant murmur click or rub, PMI was nondisplaced. Abdomen: Obese, Positive bowel sounds soft and nontender without palpable masses or organomegaly. There was no guarding or rebound. Extremities: The upper extremities have excellent pulses they are symmetric, no significant petechiae or telangiectasia. No splinter hemorrhages were noted. The lower extremities have minimal trace edema. The peripheral pulses were 2+ and symmetric. Neuro: Awake alert oriented to person place and time. There are no acute new gross focal sensory motor deficits. Less agitated today - Labs CBC & Chem 7: 06/11/16 05:48 06/11/16 05:48 Labs: Abnormal Lab Results - Last 24 Hours (Table) 06/11/16 06/11/16 Range/Units 05:48 05:48 Plt Count 101 L (150-450) k/uL Lymphocytes # 0.6 L (1.0-4.8) k/uL Chloride 110 H (98-107) mmol/L Carbon Dioxide 19 L (22-30) mmol/L Calcium 8.1 L (8.4-10.2) mg/dL Microbiology - Last 24 Hours (Table) 06/10/16 07:53 Blood Culture Gram Stain - Preliminary Blood Blood Culture - Preliminary Presumptive Staph aureus 06/10/16 07:53 Blood Culture - Preliminary Blood Laboratory Results WBC 5.4 k/uL (3.8-10.6) 06/11/16 05:48 RBC 3.91 m/uL (3.80-5.40) 06/11/16 05:48 Hgb 11.7 gm/dL (11.4-16.0) 06/11/16 05:48 Hct 37.4 % (34.0-46.0) 06/11/16 05:48 MCV 95.5 fL (80.0-100.0) 06/11/16 05:48 MCH 29.8 pg (25.0-35.0) 06/11/16 05:48 MCHC 31.2 g/dL (31.0-37.0) 06/11/16 05:48 RDW 15.2 % (11.5-15.5) 06/11/16 05:48 Plt Count 101 k/uL (150-450) L 06/11/16 05:48 Neutrophils % 86 % 06/11/16 05:48 Lymphocytes % 10 % 06/11/16 05:48 Monocytes % 2 % 06/11/16 05:48 Eosinophils % 0 % 06/11/16 05:48 Basophils % 0 % 06/11/16 05:48 Neutrophils # 4.6 k/uL (1.3-7.7) 06/11/16 05:48 Lymphocytes # 0.6 k/uL (1.0-4.8) L 06/11/16 05:48 Monocytes # 0.1 k/uL (0-1.0) 06/11/16 05:48 Eosinophils # 0.0 k/uL (0-0.7) 06/11/16 05:48 Basophils # 0.0 k/uL (0-0.2) 06/11/16 05:48 Hypochromasia Slight 06/11/16 05:48 PT 11.4 sec (9.0-12.0) 06/09/16 16:03 INR 1.1 (<1.1) 06/09/16 16:03 APTT 26.8 sec (22.0-30.0) 06/09/16 16:03 Sodium 138 mmol/L (137-145) 06/11/16 05:48 Potassium 3.8 mmol/L (3.5-5.1) 06/11/16 05:48 Chloride 110 mmol/L (98-107) H 06/11/16 05:48 Carbon Dioxide 19 mmol/L (22-30) L 06/11/16 05:48 Anion Gap 9 mmol/L 06/11/16 05:48 BUN 13 mg/dL (7-17) 06/11/16 05:48 Creatinine 0.65 mg/dL (0.52-1.04) 06/11/16 05:48 Est GFR (MDRD) Af Amer >60 (>60 ml/min/1.73 sqM) 06/11/16 05:48 Est GFR (MDRD) Non-Af >60 (>60 ml/min/1.73 sqM) 06/11/16 05:48 Glucose 89 mg/dL (74-99) 06/11/16 05:48 Plasma Lactic Acid [place] 1.4 mmol/L (0.7-2.0) 06/10/16 11:22 Calcium 8.1 mg/dL (8.4-10.2) L 06/11/16 05:48 Total Bilirubin 0.8 mg/dL (0.2-1.3) 06/09/16 16:03 AST 34 U/L (14-36) 06/09/16 16:03 ALT 33 U/L (9-52) 06/09/16 16:03 Alkaline Phosphatase 68 U/L (38-126) 06/09/16 16:03 Total Protein 7.2 g/dL (6.3-8.2) 06/09/16 16:03 Albumin 4.1 g/dL (3.5-5.0) 06/09/16 16:03 Urine Color Yellow 06/09/16 17:07 Urine Appearance Cloudy (Clear) H 06/09/16 17:07 Urine pH 5.5 (5.0-8.0) 06/09/16 17:07 Ur Specific [place] 1.021 (1.001-1.035) 06/09/16 17:07 Urine Protein 1+ (Negative) H 06/09/16 17:07 Urine Glucose (UA) Negative (Negative) 06/09/16 17:07 Urine Ketones 2+ (Negative) H 06/09/16 17:07 Urine Blood Small (Negative) H 06/09/16 17:07 Urine Nitrite Negative (Negative) 06/09/16 17:07 Urine Bilirubin Negative (Negative) 06/09/16 17:07 Urine Urobilinogen 3.0 mg/dL (<2.0) 06/09/16 17:07 Ur Leukocyte Esterase Moderate (Negative) H 06/09/16 17:07 Urine RBC 9 /hpf (0-5) H 06/09/16 17:07 Urine WBC 24 /hpf (0-5) H 06/09/16 17:07 Ur Squamous Epith Cells 27 /hpf (0-4) H 06/09/16 17:07 Urine Bacteria Few /hpf (None) H 06/09/16 17:07 Hyaline Casts 5 /lpf (0-2) H 06/09/16 17:07 Urine Mucus Moderate /hpf (None) H 06/09/16 17:07 Influenza Type A RNA Not Detected (Not Detectd) 06/09/16 17:07 Influenza Type B (PCR) Not Detected (Not Detectd) 06/09/16 17:07 Microbiology 06/10/16 07:53 Blood Blood Culture Gram Stain - Preliminary 06/10/16 07:53 Blood Blood Culture - Preliminary Presumptive Staph aureus 06/10/16 07:53 Blood Blood Culture - Preliminary 06/09/16 16:03 Blood Blood Culture Gram Stain - Preliminary 06/09/16 16:03 Blood Blood Culture - Preliminary Presumptive Staph aureus 06/09/16 17:07 Urine,Clean Catch Urine Culture - Preliminary Yeast species 06/09/16 16:03 Blood Blood Culture - Preliminary Assessment and Plan (1) Sepsis Narrative/Plan: 65-year-old woman who has a history of underlying lung disease presents to Hospital not feeling well. His related that over the last 2 weeks she's been not feeling well. She's been a bit agitated and having increasing weakness. Started to have some troubles with her ADLs. The appears her family suggested she come to Hospital she had 102.2 fever. Workup has been initiated. In is on the blood cultures positive for gram-positive cocci and urine culture is pending. Urinalysis did have contamination with many squamous cells. The patient does have a history of prior urinary infections. She does not have evidence of renal failure. Chest x-ray fails reveal evidence of pneumonia At this time patient appears to have sepsis possibly urinary source since her is somewhat of a history of this. Blood culture is positive for gram-positive cocci and laboratories preliminary reporting staph aureus await further data. With the pending cultures vancomycin has been added. She also was placed on Rocephin because there is concerns to gram-negative urinary infection, she does believe she's had prior treatments in the past and would be concerned about fluoroquinolone resistant E. coli or similar. If she does not improve will plan ultrasounding her kidneys to make sure that there is not an obstructive process occurring Follow blood cultures been requested to ensure this is rapidly. Blood cultures are showing staph aureus. Echocardiogram is requested. Further blood cultures requested to evaluate clearance of her bacteremia Status: Acute (2) Gram-positive bacteremia Status: Acute (3) Fever Status: Acute (4) UTI (urinary tract infection) Status: Acute
[2016-06-11] MEDS ORDERED: VANCOMYCIN TROUGH DUE 1 EACH MISC MISCELLANE ONE (23:00)
[2016-06-12] MEDS: PANTOPRAZOLE 40 MG TABLET PO SCH (08:15)
[2016-06-12] MEDS: LORATADINE 10 MG TAB PO SCH (08:53)
[2016-06-12] MEDS: HEPARIN SODIUM,PORCINE 5,000 UNIT/ML 1 ML VIAL SQ SCH ×3 (08:53→21:27)
[2016-06-12 08:54] LABS: Basophils % (A) 0 %; CH 30.1; CHCM 31.5; Eosinophils % (A) 0 %; HCT 38.8 % (34.0-46.0); HDW 3.05; HGB 11.9 gm/dL (11.4-16.0); Hypochromasia Slight; Luc # (Auto) 0.19; Luc % (Auto) 4; Lymphocytes # (A) 0.7 k/uL (1.0-4.8); Lymphocytes % (A) 14 %; MCH 29.6 pg (25.0-35.0); MCHC 30.7 g/dL (31.0-37.0); MCV 96.4 fL (80.0-100.0); Mean Platelet Volume 8.2; Monocytes # (A) 0.2 k/uL (0-1.0); Monocytes % (A) 4 %; Neutrophils # (A) 4.1 k/uL (1.3-7.7); Neutrophils % (A) 78 %; RBC 4.02 m/uL (3.80-5.40); RDW 15.3 % (11.5-15.5); WBC 5.2 k/uL (3.8-10.6); WBC (Perox) 5.55
[2016-06-12] MEDS: rOPINIRole HCL 4 MG TABLET PO SCH ×3 (08:54→21:06)
[2016-06-12 09:13] LABS: Anion Gap 13 mmol/L; Blood Urea Nitrogen 14 mg/dL (7-17); Calcium 8.7 mg/dL (8.4-10.2); Carbon Dioxide 21 mmol/L (22-30); Chloride 106 mmol/L (98-107); Glucose 93 mg/dL (74-99); Non-African American GFR(MDRD) >60 (>60 ml/min/1.73 sqM); Potassium 3.4 mmol/L (3.5-5.1); Sodium 140 mmol/L (137-145)
[2016-06-12] MEDS: ACETAMINOPHEN TAB 325 MG TAB PO PRN ×2 (09:35→19:27)
--- NOTE | 2016-06-12 10:43 | ECHOF ---
Referral Reason:staph bacteremia MEASUREMENTS -------- HEIGHT: 170.2 cm WEIGHT: 64.9 kg BP: 160/92 RVIDd: 2.8 cm (< 3.3) IVSd: 1.2 cm (0.6 - 1.1) LVIDd: 3.5 cm (3.9 - 5.3) LVPWd: 1.2 cm (0.6 - 1.1) IVSs: 1.6 cm LVIDs: 2.5 cm LVPWs: 1.5 cm LA Diam: 2.4 cm (2.7 - 3.8) LAESV Index (A-L): 17.83 ml/m Ao Diam: 2.4 cm (2.0 - 3.7) AV Cusp: 1.5 cm (1.5 - 2.6) LA Diam: 2.6 cm (2.7 - 3.8) MV EXCURSION: 12.408 mm (> 18.000) MV EF SLOPE: 46 mm/s (70 - 150) EPSS: 0.7 cm MV E Viktor: 0.96 m/s MV DecT: 161 ms MV A Viktor: 1.34 m/s MV E/A Ratio: 0.72 RAP: 5.00 mmHg RVSP: 41.56 mmHg FINDINGS -------- Sinus rhythm. This was a technically good study. There is borderline concentric left ventricular hypertrophy. Overall left ventricular systolic function is normal with, an EF between 55 - 60 %. The right ventricle is normal in size. Normal LA size by volume 22+/-6 ml/m2. The right atrium is normal in size. Aortic valve is trileaflet and is mildly thickened. The mitral valve leaflets are mildly thickened. Mild mitral annular calcification present. Mild mitral regurgitation is present. Mild tricuspid regurgitation present. There is mild pulmonary hypertension. The right ventricular systolic pressure, as measured by Doppler, is 41.56mmHg. Pulmonic valve appears structurally normal. The aortic root size is normal. The inferior vena cava is mildly dilated. Echo free space may represent effusion or a pericardial fat pad. CONCLUSIONS -------- 1. Sinus rhythm. 2. Mild mitral annular calcification present. 3. Mild mitral regurgitation is present. 4. Mild tricuspid regurgitation present. 5. There is mild pulmonary hypertension. 6. The right ventricular systolic pressure, as measured by Doppler, is 41.56mmHg. 7. Pulmonic valve appears structurally normal. 8. The aortic root size is normal. 9. The inferior vena cava is mildly dilated. 10. Echo free space may represent effusion or a pericardial fat pad. 11. This was a technically good study. 12. There is borderline concentric left ventricular hypertrophy. 13. Overall left ventricular systolic function is normal with, an EF between 55 - 60 %. 14. The right ventricle is normal in size. 15. Normal LA size by volume 22+/-6 ml/m2. 16. The right atrium is normal in size. 17. Aortic valve is trileaflet and is mildly thickened. 18. The mitral valve leaflets are mildly thickened. CORE FINISHER: Gabino Sarmiento RDCS
[2016-06-12] MEDS ORDERED: VANCOMYCIN 1,500 MG in SODIUM CHLORIDE 0.9% 250 ML IVPB SCH (11:00)
[2016-06-12] MEDS ORDERED: Potassium Replacement Protocol 1 EACH MISC MISCELLANE PRN (12:15)
[2016-06-12] MEDS: IBUPROFEN 600 MG TAB PO PRN ×2 (12:22→19:26)
[2016-06-12] MEDS: POTASSIUM CHLORIDE ER 20 MEQ TAB.ER PO SCH ×2 (13:00→13:49)
--- NOTE | 2016-06-12 13:07 | P.PN ---
Subjective Patient is complaining of headache today. Objective - Vital Signs Vital signs: Vital Signs Temp 97.4 F L 06/12/16 07:00 Pulse 83 06/12/16 07:00 Resp 19 06/12/16 07:00 BP 125/79 06/12/16 07:00 Pulse Ox 98 06/12/16 07:00 Intake & Output 06/11/16 06/12/16 06/12/16 18:59 06:59 18:59 Intake Total 1418 600 Output Total 600 Balance 818 600 Weight 65.5 kg Intake: IV 250 Vancomycin 1,250 mg In 250 Sodium Chloride 0.9% 250 ml @ 125 mls/hr IVPB ONCE ONE Rx#:[id number] Intake, IV Titration 50 Amount cefTRIAXone 1,000 mg In 50 Sodium Chloride 0.9% 50 ml @ 100 mls/hr IVPB Q24HR [facility] Rx#:[id number] Oral 1118 600 Output: Urine 600 Other: Voiding Method Toilet Toilet # Voids 1 - Exam General: The patient is awake and alert, in no distress Eye: there is normal conjunctiva bilaterally. Neck: The neck is supple, there is no JVD. Cardiovascular: Normal S1-S2, no S3-S4, no murmurs. Respiratory: Lungs clear to auscultation bilaterally Gastrointestinal: Abdomen is soft, nontender Musculoskeletal: There is no pedal edema. Neurological:. Speech is normal. Skin: Skin is warm and dry - Labs CBC & Chem 7: 06/12/16 08:07 06/12/16 08:07 Labs: Abnormal Lab Results - Last 24 Hours (Table) 06/12/16 06/12/16 Range/Units 08:07 08:07 MCHC 30.7 L (31.0-37.0) g/dL Plt Count 117 L (150-450) k/uL Lymphocytes # 0.7 L (1.0-4.8) k/uL Potassium 3.4 L (3.5-5.1) mmol/L Carbon Dioxide 21 L (22-30) mmol/L Microbiology - Last 24 Hours (Table) 06/10/16 07:53 Blood Culture Gram Stain - Preliminary Blood Blood Culture - Preliminary Presumptive Staph aureus Assessment and Plan Plan: 1. Sepsis: Without septic shock. Lactic acid was normal. 2. Bacteremia, with staph aureus. Repeat blood culture from yesterday still pending . Exact source is unclear. Possibly underlying UTI. echocardiogram showed no obvious source. patient denies any history of IV drug use or recent dental procedures. Appreciate infectious disease recommendations. continue broad spectrum antibiotic until cultures are finalized 3. Mild intermittent asthma: With no evidence of exacerbation 4. Osteoporosis 5. GI and DVT prophylaxis Today, I reviewed her medication list and lab work results. Continue antibiotic as recommended by infectious disease awaiting cultures to finalize. Chest x- ray was unremarkable. Influenza screening was negative as well.
[2016-06-12] MEDS ORDERED: POTASSIUM CHLORIDE ER 20 MEQ TAB.ER PO STA (17:57)
[2016-06-12] MEDS: TOPIRAMATE 25 MG TAB PO SCH (21:06)
[2016-06-12] MEDS: MONTELUKAST 10 MG TAB PO SCH (21:06)
[2016-06-12] MEDS: GABAPENTIN 300 MG CAP PO PRN (21:06)
--- NOTE | 2016-06-12 22:00 | P.PN ---
Subjective Principal diagnosis: Fever 65-year-old woman who is somewhat of a poor historian presents emergency center not feeling well for the last several weeks. Apparently she has had some difficulties with fever and chills throughout this time frame. She thinks she' s had some dysuria. She's had some shortness of breath with some cough. She's felt quite poorly with difficulty performing her ADLs. Apparently her family came by and insisted that she seek medical care. Evidence of Temperature 102.2 and Presented to the Emergency Center. Patient is feeling better today. Her abdominal pains improved. She is eating well. Lesch short of breath. Less cough. Overall feeling better. Cerner think about wanting to go home. Objective - Vital Signs Vital signs: Vital Signs Temp 98.1 F 06/12/16 15:00 Pulse 82 06/12/16 15:00 Resp 18 06/12/16 21:27 BP 139/94 06/12/16 15:00 Pulse Ox 93 L 06/12/16 15:00 Intake & Output 06/12/16 06/12/16 06/13/16 06:59 18:59 06:59 Intake Total 600 50 Output Total 600 Balance 600 -550 Weight 65.5 kg 65.5 kg Intake: Intake, IV Titration 50 Amount cefTRIAXone 1,000 mg In 50 Sodium Chloride 0.9% 50 ml @ 100 mls/hr IVPB Q24HR [facility] Rx#:[id number] Oral 600 Output: Urine 600 Other: Voiding Method Toilet Toilet Toilet # Voids 1 3 - Exam 65-year-old woman who looks older than her stated age. Appears mildly ill and somewhat restless HEENT: Anicteric conjunctiva are pink and moist nasal mucosa grossly intact without significant lesions, there is no thrush. Full denture Neck: The neck is supple without significant lymphadenopathy or thyromegaly. Lungs: Symmetrical air entry is noted. Few expiratory wheezes are heard. No bronchial sounds. No dullness no egophony or no change in tactile fremitus Heart: Regular rate and rhythm with an audible S1-S2, no S3 positive S4. There is no significant murmur click or rub, PMI was nondisplaced. Abdomen: Obese, Positive bowel sounds soft and nontender without palpable masses or organomegaly. There was no guarding or rebound. Extremities: The upper extremities have excellent pulses they are symmetric, no significant petechiae or telangiectasia. No splinter hemorrhages were noted. The lower extremities have minimal trace edema. The peripheral pulses were 2+ and symmetric. Neuro: Patient is now awake alert oriented to person place and time is much more interactive and calm - Labs CBC & Chem 7: 06/12/16 08:07 06/12/16 15:57 Labs: Abnormal Lab Results - Last 24 Hours (Table) 06/12/16 06/12/16 Range/Units 08:07 08:07 MCHC 30.7 L (31.0-37.0) g/dL Plt Count 117 L (150-450) k/uL Lymphocytes # 0.7 L (1.0-4.8) k/uL Potassium 3.4 L (3.5-5.1) mmol/L Carbon Dioxide 21 L (22-30) mmol/L Microbiology - Last 24 Hours (Table) 06/11/16 13:36 Blood Culture - Preliminary Blood No Growth after 24 hours 06/10/16 07:53 Blood Culture Gram Stain - Final Blood Blood Culture - Preliminary Staphylococcus aureus Laboratory Results WBC 5.2 k/uL (3.8-10.6) 06/12/16 08:07 RBC 4.02 m/uL (3.80-5.40) 06/12/16 08:07 Hgb 11.9 gm/dL (11.4-16.0) 06/12/16 08:07 Hct 38.8 % (34.0-46.0) 06/12/16 08:07 MCV 96.4 fL (80.0-100.0) 06/12/16 08:07 MCH 29.6 pg (25.0-35.0) 06/12/16 08:07 MCHC 30.7 g/dL (31.0-37.0) L 06/12/16 08:07 RDW 15.3 % (11.5-15.5) 06/12/16 08:07 Plt Count 117 k/uL (150-450) L 06/12/16 08:07 Neutrophils % 78 % 06/12/16 08:07 Lymphocytes % 14 % 06/12/16 08:07 Monocytes % 4 % 06/12/16 08:07 Eosinophils % 0 % 06/12/16 08:07 Basophils % 0 % 06/12/16 08:07 Neutrophils # 4.1 k/uL (1.3-7.7) 06/12/16 08:07 Lymphocytes # 0.7 k/uL (1.0-4.8) L 06/12/16 08:07 Monocytes # 0.2 k/uL (0-1.0) 06/12/16 08:07 Eosinophils # 0.0 k/uL (0-0.7) 06/12/16 08:07 Basophils # 0.0 k/uL (0-0.2) 06/12/16 08:07 Hypochromasia Slight 06/12/16 08:07 PT 11.4 sec (9.0-12.0) 06/09/16 16:03 INR 1.1 (<1.1) 06/09/16 16:03 APTT 26.8 sec (22.0-30.0) 06/09/16 16:03 Sodium 140 mmol/L (137-145) 06/12/16 08:07 Potassium 3.5 mmol/L (3.5-5.1) 06/12/16 15:57 Chloride 106 mmol/L (98-107) 06/12/16 08:07 Carbon Dioxide 21 mmol/L (22-30) L 06/12/16 08:07 Anion Gap 13 mmol/L 06/12/16 08:07 BUN 14 mg/dL (7-17) 06/12/16 08:07 Creatinine 0.67 mg/dL (0.52-1.04) 06/12/16 08:07 Est GFR (MDRD) Af Amer >60 (>60 ml/min/1.73 sqM) 06/12/16 08:07 Est GFR (MDRD) Non-Af >60 (>60 ml/min/1.73 sqM) 06/12/16 08:07 Glucose 93 mg/dL (74-99) 06/12/16 08:07 Plasma Lactic Acid Timothy 1.4 mmol/L (0.7-2.0) 06/10/16 11:22 Calcium 8.7 mg/dL (8.4-10.2) 06/12/16 08:07 Total Bilirubin 0.8 mg/dL (0.2-1.3) 06/09/16 16:03 AST 34 U/L (14-36) 06/09/16 16:03 ALT 33 U/L (9-52) 06/09/16 16:03 Alkaline Phosphatase 68 U/L (38-126) 06/09/16 16:03 Total Protein 7.2 g/dL (6.3-8.2) 06/09/16 16:03 Albumin 4.1 g/dL (3.5-5.0) 06/09/16 16:03 Urine Color Yellow 06/09/16 17:07 Urine Appearance Cloudy (Clear) H 06/09/16 17:07 Urine pH 5.5 (5.0-8.0) 06/09/16 17:07 Ur Specific Walton 1.021 (1.001-1.035) 06/09/16 17:07 Urine Protein 1+ (Negative) H 06/09/16 17:07 Urine Glucose (UA) Negative (Negative) 06/09/16 17:07 Urine Ketones 2+ (Negative) H 06/09/16 17:07 Urine Blood Small (Negative) H 06/09/16 17:07 Urine Nitrite Negative (Negative) 06/09/16 17:07 Urine Bilirubin Negative (Negative) 06/09/16 17:07 Urine Urobilinogen 3.0 mg/dL (<2.0) 06/09/16 17:07 Ur Leukocyte Esterase Moderate (Negative) H 06/09/16 17:07 Urine RBC 9 /hpf (0-5) H 06/09/16 17:07 Urine WBC 24 /hpf (0-5) H 06/09/16 17:07 Ur Squamous Epith Cells 27 /hpf (0-4) H 06/09/16 17:07 Urine Bacteria Few /hpf (None) H 06/09/16 17:07 Hyaline Casts 5 /lpf (0-2) H 06/09/16 17:07 Urine Mucus Moderate /hpf (None) H 06/09/16 17:07 Vancomycin Trough 11.9 ug/mL 06/11/16 23:26 Influenza Type A RNA Not Detected (Not Detectd) 06/09/16 17:07 Influenza Type B (PCR) Not Detected (Not Detectd) 06/09/16 17:07 Microbiology 06/11/16 13:36 Blood Blood Culture - Preliminary No Growth after 24 hours 06/10/16 07:53 Blood Blood Culture Gram Stain - Final 06/10/16 07:53 Blood Blood Culture - Preliminary Staphylococcus aureus 06/09/16 17:07 Urine,Clean Catch Urine Culture - Final Viviana albicans 06/09/16 16:03 Blood Blood Culture Gram Stain - Final 06/09/16 16:03 Blood Blood Culture - Final Staphylococcus aureus 06/10/16 07:53 Blood Blood Culture - Preliminary 06/09/16 16:03 Blood Blood Culture - Preliminary Assessment and Plan (1) Sepsis Narrative/Plan: 65-year-old woman who has a history of underlying lung disease presents to Hospital not feeling well. His related that over the last 2 weeks she's been not feeling well. She's been a bit agitated and having increasing weakness. Started to have some troubles with her ADLs. The appears her family suggested she come to Hospital she had 102.2 fever. Workup has been initiated. In is on the blood cultures positive for gram-positive cocci and urine culture is pending. Urinalysis did have contamination with many squamous cells. The patient does have a history of prior urinary infections. She does not have evidence of renal failure. Chest x-ray fails reveal evidence of pneumonia As noted likely has sepsis from a urinary source. She is much improved today. She is eating and drinking without difficulties. Has no other new acute complaints. We now have a negative blood culture at 24 hours. If negative the morning a PICC line can be placed. In arranges can be made for outpatient intravenous antibiotic therapy for at least 2 weeks given her staph aureus bacteremia likely from the renal source. Status: Acute (2) Gram-positive bacteremia Status: Acute (3) Fever Status: Acute (4) UTI (urinary tract infection) Status: Acute
[2016-06-12 23:14] VITALS: RESP 16
[2016-06-13] MEDS: rOPINIRole HCL 4 MG TABLET PO SCH (07:38)
[2016-06-13] MEDS: PANTOPRAZOLE 40 MG TABLET PO SCH (07:38)
[2016-06-13] MEDS: HEPARIN SODIUM,PORCINE 5,000 UNIT/ML 1 ML VIAL SQ SCH (07:38)
[2016-06-13] MEDS: LORATADINE 10 MG TAB PO SCH (07:38)
[2016-06-13] MEDS: ACETAMINOPHEN TAB 325 MG TAB PO PRN (07:58)
[2016-06-13 08:32] LABS: Basophils % (A) 1 %; CH 30.4; CHCM 32.9; Eosinophils # (A) 0.1 k/uL (0-0.7); Eosinophils % (A) 2 %; HCT 38.7 % (34.0-46.0); HDW 3.32; HGB 12.8 gm/dL (11.4-16.0); Luc # (Auto) 0.17; Luc % (Auto) 4; Lymphocytes # (A) 0.9 k/uL (1.0-4.8); Lymphocytes % (A) 20 %; MCH 30.9 pg (25.0-35.0); MCHC 33.2 g/dL (31.0-37.0); Mean Platelet Volume 7.4; Monocytes # (A) 0.2 k/uL (0-1.0); Monocytes % (A) 5 %; Neutrophils % (A) 68 %; RBC 4.16 m/uL (3.80-5.40); WBC 4.4 k/uL (3.8-10.6); WBC (Perox) 4.62
[2016-06-13 08:42] LABS: Anion Gap 11 mmol/L; Blood Urea Nitrogen 12 mg/dL (7-17); Calcium 8.8 mg/dL (8.4-10.2); Carbon Dioxide 23 mmol/L (22-30); Chloride 108 mmol/L (98-107); Glucose 124 mg/dL (74-99); Non-African American GFR(MDRD) >60 (>60 ml/min/1.73 sqM); Potassium 3.9 mmol/L (3.5-5.1); Sodium 142 mmol/L (137-145)
[2016-06-13 09:45] VITALS: BP 165/86; PULSE 89; TEMP 97.8
--- NOTE | 2016-06-13 11:02 | P.DS ---
Providers Date of admission: 06/09/16 20:47 Expected date of discharge: 06/13/16 Attending physician: Gabino Palumbo Consults: 06/10/16 09:58 Consult Physician Routine Consulting Provider: Reginald Gage Consult Reason/Comments: UTI/Sepsis Do you want consulting provider notified?: Yes Primary care physician: Mariza Wiggins Hospital Course: This is a 74-year-old female with past medical history noted below who presented to the hospital with a chief complaint of not feeling well. She was evaluated in the emergency room and was found to be septic. He was admitted to the hospital and was treated aggressively with IV fluid hydration, antibiotic, and supportive care. Patient was found to be bacteremic and blood culture showed MSSA. Patient remained bacteremic for 2 days with persistent bacteremia. No source other than underlying UTI was identified. There was a distal for medical problems at this time this hospitalization. 1. Sepsis: Without septic shock. Lactic acid was normal. 2. Bacteremia, with MSSA. Exact source is unclear. Most likely underlying UTI. echocardiogram showed no obvious source. patient denies any history of IV drug use or recent dental procedures. Patient was seen and evaluated by infectious disease. Plan to finish 14 days of antibiotic with IV ceftriaxone via PICC line at home. 3. Mild intermittent asthma: With no evidence of exacerbation 4. Osteoporosis: Managed by her primary care physician Patient will be discharged home in a stable condition. She will follow-up with in 3-5 days. Plan - Discharge Summary New Discharge Prescriptions: cefTRIAXone [Rocephin] 1,000 mg IVPB Q24HR #28 vial Discharge Medication List Acetaminophen Tab [Tylenol] 1,000 mg PO Q6HR PRN 06/09/16 [History] Albuterol Sulfate [Proair Hfa] 1 - 2 puff INHALATION RT-Q6H PRN 06/09/16 [ History] Alendronate Sodium [Fosamax] 10 mg PO DAILY 06/09/16 [History] Gabapentin [Neurontin] 300 mg PO TID PRN 06/09/16 [History] Levocetirizine Dihydrochloride [Xyzal] 5 mg PO HS 06/09/16 [History] Montelukast Sodium [Singulair] 10 mg PO HS 06/09/16 [History] Omeprazole [PriLOSEC] 20 mg PO AC-BRKFST 06/09/16 [History] Topiramate [Topamax] 25 mg PO HS 06/09/16 [History] rOPINIRole HCL [Requip Xl] 12 mg PO HS 06/09/16 [History] cefTRIAXone [Rocephin] 1,000 mg IVPB Q24HR #28 vial 06/13/16 [Rx] Follow up Appointment(s)/Referral(s): Mariza Wiggins MD [Primary Care Provider] - 1-2 days Reginald Gage MD [STAFF PHYSICIAN] - 2 Weeks Ambulatory/Diagnostic Orders: Basic Metabolic Panel [LAB.AMB] Location: Determined By Patient Complete Blood Count w/diff [LAB.AMB] Location: Determined By Patient Discharge Disposition: HOME WITH HOME HEALTH SERVICES
[2016-06-13] MEDS ORDERED: LIDOCAINE 2% (PF) 20 MG/ML 10ML SQ ONE (11:18)
[2016-06-13] MEDS: IBUPROFEN 600 MG TAB PO PRN (12:08)
--- NOTE | 2016-06-13 15:58 | IR ---
EXAMINATION TYPE: IR cvc insert >=5 years DATE OF EXAM: 06/13/2016 11:18 AM COMPARISON: NONE CLINICAL HISTORY: Infection Needs long-term intravenous access for antibiotics. PROCEDURE: After informed consent, the skin overlying the upper extremity vein was localized with ultrasound and noted to be compressible and patent. An ultrasound image was obtained and submitted on the patient' s chart. The overlying skin was prepped and draped and Lidocaine was used for local anesthesia. A s kin kelly was made with a scalpel. Access was gained to the vein under ultrasound guidance with a 21 gauge needle and a 0.018 inch wire was advanced. Access site was dilated with Peel-Away sheath and c atheter tailored to the appropriate length and advanced such that the distal tip is at the cavoatrial junction. Spot image was obtained verifying placement with the tip at the cavoatrial junction. Cat heter was fixed to the skin with suture and a sterile dressing was placed following hemostasis. Cath eter was aspirated and flushed with saline. Patient was discharged in stable condition without compl ication. Maximal barrier technique is utilized. Ultrasound image is documented on the chart. Ultraso und used with sterile technique. Fluoro time and fluoroscopic images submitted to document procedure: 19 intraoperative C-arm images d ocument the procedure, 0.1 minutes fluoroscopy time IMPRESSION: STATUS POST ULTRASOUND AND FLUOROSCOPIC GUIDED PICC LINE PLACEMENT, READY FOR USE. THIS PROCEDURE WAS PERFORMED BY THE UNDERSIGNED.
== END 2016-06-13 14:21 | disposition home health service (06) | DRG 872 ==
LOC: EC 15:11 → 6SEL 20:47 → 4MS4W 06-11 18:38
PROVIDERS: ADMIT Internal Medicine; ATTEND Internal Medicine
PROC: 02HV33Z Insertion of Infusion Device into Superior Vena Cava, Percutaneous Approach (ICD-10-PCS; principal; 2016-06-13 10:59)
PROC: B518ZZA Fluoroscopy of Superior Vena Cava, Guidance (ICD-10-PCS; 2016-06-13 10:59)
PROC: B548ZZA Ultrasonography of Superior Vena Cava, Guidance (ICD-10-PCS; 2016-06-13 10:59)
DX: A41.01 Sepsis due to Methicillin susceptible Staphylococcus aureus (principal); N39.0 Urinary tract infection, site not specified; I95.9 Hypotension, unspecified; E86.0 Dehydration; G25.81 Restless legs syndrome; J45.20 Mild intermittent asthma, uncomplicated; K59.00 Constipation, unspecified; M81.0 Age-related osteoporosis without current pathological fracture; R45.1 Restlessness and agitation; J44.9 Chronic obstructive pulmonary disease, unspecified; Z79.899 Other long term (current) drug therapy; Z87.891 Personal history of nicotine dependence; Z88.0 Allergy status to penicillin
CPT/HCPCS: 36415; 36569; 71020; 76937; 77001; 80048; 80053; 80202; 81001; 83605; 84132; 85025; 85610; 85730; 87040; 87077; 87086; 87186; 87502; 93005; 93306; 99284

== ENCOUNTER → 2016-08-12 | Outpatient (CLI) | payer MEDICARE ==
[2016-08-12 14:15] LABS: Basophils % (A) 1 %; CH 30.1; CHCM 32.6; Eosinophils # (A) 0.1 k/uL (0-0.7); Eosinophils % (A) 1 %; HCT 39.1 % (34.0-46.0); HDW 3.03; HGB 12.7 gm/dL (11.4-16.0); Luc # (Auto) 0.15; Luc % (Auto) 4; Lymphocytes # (A) 1.1 k/uL (1.0-4.8); Lymphocytes % (A) 29 %; MCH 30.2 pg (25.0-35.0); MCHC 32.4 g/dL (31.0-37.0); MCV 93.1 fL (80.0-100.0); Mean Platelet Volume 7.1; Monocytes # (A) 0.2 k/uL (0-1.0); Monocytes % (A) 5 %; Neutrophils # (A) 2.3 k/uL (1.3-7.7); Neutrophils % (A) 60 %; RDW 15.2 % (11.5-15.5); WBC 3.8 k/uL (3.8-10.6); WBC (Perox) 3.89
[2016-08-12 14:24] LABS: ALT 24 U/L (9-52); AST 20 U/L (14-36); Alkaline Phosphatase 59 U/L (38-126); Anion Gap 9 mmol/L; Blood Urea Nitrogen 18 mg/dL (7-17); Calcium 9.1 mg/dL (8.4-10.2); Carbon Dioxide 23 mmol/L (22-30); Chloride 103 mmol/L (98-107); Glucose 95 mg/dL (74-99); Non-African American GFR(MDRD) >60 (>60 ml/min/1.73 sqM); Potassium 4.7 mmol/L (3.5-5.1); Sodium 135 mmol/L (137-145); Total Bilirubin 0.6 mg/dL (0.2-1.3); Total Protein 7.4 g/dL (6.3-8.2)
[2016-08-12 16:31] LABS: Erythrocyte Sedimentation Rate 10 mm/hr (0-20)
== END | disposition home or self-care (01) ==
LOC: LABWHC1 13:54
PROVIDERS: ATTEND Internal Medicine Infectious Disease
DX: N39.0 Urinary tract infection, site not specified (principal)
CPT/HCPCS: 36415; 80053; 85025; 85652

== ENCOUNTER → 2016-08-12 | Outpatient (CLI) | payer MEDICARE ==
--- NOTE | 2016-08-12 14:44 | US ---
EXAMINATION TYPE: US bladder DATE OF EXAM: 08/12/2016 COMPARISON: NONE CLINICAL HISTORY: R78.81 bacteremia, Z87.440 Personal Hx of UTI. EXAM MEASUREMENTS: Post Void Residual Volume: 12.0 mL Color Doppler performed to assess ureteral jets. Bilateral Jets seen: Yes Normal Post Void Residual (less than 50ml): Yes No debris is evident. No shadowing renal calculi are evident. IMPRESSION: 1. Normal urinary bladder.
== END | disposition home or self-care (01) ==
LOC: RADUSWWP 13:36
PROVIDERS: ATTEND Family Medicine
DX: R78.81 Bacteremia (principal); Z87.440 Personal history of urinary (tract) infections
CPT/HCPCS: 76857

== ENCOUNTER → 2017-05-01 | Outpatient (CLI) | payer MEDICARE ==
[2017-05-01 14:31] LABS: Basophils % (A) 1 %; Eosinophils # (A) 0.1 k/uL (0-0.7); Eosinophils % (A) 1 %; HCT 37.2 % (34.0-46.0); HGB 11.7 gm/dL (11.4-16.0); Hypochromasia Slight; Lymphocytes # (A) 0.9 k/uL (1.0-4.8); Lymphocytes % (A) 23 %; MCH 28.9 pg (25.0-35.0); MCHC 31.4 g/dL (31.0-37.0); MCV 91.9 fL (80.0-100.0); Mean Platelet Volume 7.4; Monocytes # (A) 0.2 k/uL (0-1.0); Monocytes % (A) 6 %; Neutrophils # (A) 2.5 k/uL (1.3-7.7); Neutrophils % (A) 66 %; Platelet Count 177 k/uL (150-450); RBC 4.05 m/uL (3.80-5.40); RDW 14.8 % (11.5-15.5); WBC 3.8 k/uL (3.8-10.6)
[2017-05-01 14:38] LABS: ALT 25 U/L (9-52); AST 23 U/L (14-36); Alkaline Phosphatase 58 U/L (38-126); Anion Gap 9 mmol/L; Blood Urea Nitrogen 19 mg/dL (7-17); Calcium 9.2 mg/dL (8.4-10.2); Carbon Dioxide 25 mmol/L (22-30); Chloride 107 mmol/L (98-107); Glucose 98 mg/dL (74-99); Potassium 3.8 mmol/L (3.5-5.1); Sodium 141 mmol/L (137-145); Total Bilirubin 0.4 mg/dL (0.2-1.3)
[2017-05-01 17:06] LABS: Erythrocyte Sedimentation Rate 13 mm/hr (0-20)
== END | disposition home or self-care (01) ==
LOC: LABWHC1 13:50
PROVIDERS: ATTEND Internal Medicine Infectious Disease
DX: R63.4 Abnormal weight loss (principal); Z88.0 Allergy status to penicillin
CPT/HCPCS: 36415; 80053; 84439; 84443; 85025; 85652

== ENCOUNTER 2018-03-22 07:51 | Day surgery (SDC) | payer MEDICARE ==
[2018-03-18 12:18] VITALS: BMI 18.2
[~2018-03-22 07:51] MED LIST: ALPRAZolam 0.25 MG TAB PO PRN; ASPIRIN 325 MG TAB PO ONE; SODIUM CHLORIDE 0.9% 1,000 ML in EMPTY BAG 1 BAG IV ONE
[2018-03-22 08:22] VITALS: TEMP 97.7
[2018-03-22 08:32] LABS: Glucose,Whole Blood 88 mg/dL (75-99)
[2018-03-22] MEDS ORDERED: fentaNYL (PF) 50 MCG/ML 2 ML AMP ONE (08:43)
[2018-03-22] MEDS: BENZOCAINE SPRAY 1 CAN MUCOUS MEM ONE ×2 (08:54→09:01)
[2018-03-22] MEDS: MIDAZOLAM 2 MG/2 ML VIAL IVP ONE ×3 (09:21→09:28)
[2018-03-22] MEDS: fentaNYL (PF) 50 MCG/ML 2 ML AMP IVP ONE ×3 (09:21→09:34)
[2018-03-22] MEDS ORDERED: LIDOCAINE 1% INJ 10MG/ML (20 ML MDV) ONE (09:36)
[2018-03-22 10:00] VITALS: RESP 16
--- NOTE | 2018-03-22 10:03 | ECHOT ---
TRANSESOPHAGEAL ECHOCARDIOGRAM DATE OF SERVICE: 03/22/2018 PERFORMING PHYSICIAN: Anival Mancilla MD, Painter Hand. PROCEDURE PERFORMED: Transesophageal echocardiogram. INDICATION: This is a pleasant 67-year-old female patient who was admitted recently to [facility] with congestive heart failure exacerbation. She underwent an echocardiogram and that revealed severe mitral regurgitation and severe pulmonary hypertension. She was brought today to undergo a transesophageal echocardiogram for further assessment of the mitral valve apparatus. COMPLICATION: None. LEVEL OF SEDATION: Moderate with sedation length of 21 minutes. PROCEDURE DESCRIPTION: After obtaining an informed consent, explaining the procedure, benefits, risks, complications and alternatives, the patient was brought to the transesophageal echocardiogram suite. A pulse oximetry and heart rate monitors were attached to the patient prior to the procedure. The patient's throat was sprayed using lidocaine locally. Following that, the patient was turned into left lateral position. A bite guard was placed and the patient was then sedated with the above doses of Versed and fentanyl in divided doses. Following that, the transesophageal echocardiogram probe was advanced through the bite guard into the mid esophagus where 2-D echocardiogram images as well as color Doppler images of various cardiac structures were obtained. We evaluated the interatrial septum using 2-D echocardiogram, color Doppler, and contrast study. The procedure was completed. There were no complications. FINDINGS: The left ventricular dimension and systolic function appeared to be within normal limits. The ejection fraction was 55%. The right ventricle appeared to be of normal size and function. The left atrium and right atrium are within normal limits for dimension. The aortic valve appeared to be trileaflet valve without stenosis or regurgitation. The mitral valve seems to be thickened with thickening of the anterior as well as posterior mitral leaflet and evidence of moderate mitral regurgitation by color-flow Doppler, by vena contract, as well as by Pesar. Tricuspid valve and pulmonic valve appear to be within normal limits. CONCLUSION: 1. Normal left ventricular dimension and systolic function with an ejection fraction between 55%-60%. 2. Normal cardiac chamber sizes. 3. Thickened mitral valve leaflets with moderate mitral regurgitation only. The mitral regurgitation was moderate by color-flow Doppler, by vena contract, as well as by Pesar. 4. Trileaflet aortic valve without stenosis or regurgitation. 5. Normal tricuspid valve and pulmonic valve. 6. Normal left atrial appendage without any evidence of thrombus. 7. The interatrial septum was not assessed by bubble study. 8. Normal aortic root dimension. 9. No evidence of pericardial effusion. MMODL / IJN: [id number] /
[2018-03-22 10:54] VITALS: BP 108/57; PULSE 52
== END 2018-03-22 10:53 | disposition home or self-care (01) ==
LOC: CATHCVL 07:51
PROVIDERS: ATTEND Internal Medicine Interventional Cardiology
DX: I34.0 Nonrheumatic mitral (valve) insufficiency (principal); I27.20 Pulmonary hypertension, unspecified; I11.0 Hypertensive heart disease with heart failure; I50.32 Chronic diastolic (congestive) heart failure; J44.9 Chronic obstructive pulmonary disease, unspecified; Z79.82 Long term (current) use of aspirin; Z79.52 Long term (current) use of systemic steroids; Z79.899 Other long term (current) drug therapy; Z79.891 Long term (current) use of opiate analgesic
CPT/HCPCS: 93312; 93320; J2250; J3010; 93325

== ENCOUNTER 2018-09-27 08:30 | Day surgery (SDC) | payer MEDICARE ==
[2018-09-21 15:15] VITALS: BMI 18.3
[2018-09-27] MEDS ORDERED: SODIUM CHLORIDE 0.9% 1,000 ML IV ONE (09:15)
[2018-09-27] MEDS ORDERED: ALPRAZolam 0.5 MG TAB ONE (09:19)
[2018-09-27 09:22] LABS: Glucose,Whole Blood 95 mg/dL (75-99)
[2018-09-27 09:44] VITALS: TEMP 97.6
[2018-09-27] MEDS ORDERED: fentaNYL (PF) 50 MCG/ML 2 ML AMP ONE (10:04)
[2018-09-27] MEDS: BENZOCAINE SPRAY 1 CAN MUCOUS MEM ONE ×2 (10:36→10:39)
[2018-09-27] MEDS ORDERED: fentaNYL (PF) 50 MCG/ML 2 ML AMP IV ONE (10:39)
[2018-09-27] MEDS ORDERED: MIDAZOLAM (PF) 2 MG/2 ML VIAL IVP ONE (10:39)
[2018-09-27] MEDS ORDERED: ONDANSETRON 4 MG TAB PO PRN (11:08)
[2018-09-27] MEDS ORDERED: IBUPROFEN 600 MG TAB PO PRN (11:08)
[2018-09-27] MEDS ORDERED: ACETAMINOPHEN TAB 500 MG TAB PO PRN (11:08)
[2018-09-27] MEDS ORDERED: LIDOCAINE 1% INJ 10MG/ML (20 ML MDV) ONE (11:10)
[2018-09-27] MEDS ORDERED: IV FLUID CONTINUATION 1,000 ML IV ONE (11:10)
[2018-09-27] MEDS ORDERED: LIDOCAINE 1% INJ 10MG/ML (20 ML MDV) IV ONE (11:19)
--- NOTE | 2018-09-27 11:21 | ECHOT ---
TRANSESOPHAGEAL ECHOCARDIOGRAM DATE OF SERVICE: 09/27/2018 PERFORMING PHYSICIAN: Anival Mancilla MD, Premium Cancellation Clerk. PROCEDURE PERFORMED: Transesophageal echocardiogram. INDICATION: This is a 68-year-old female patient who is known to have mitral regurgitation, recently was experiencing shortness of breath with exertion and underwent transthoracic echocardiogram which revealed moderate to severe mitral regurgitation. She was scheduled today to undergo a ADELA followed by heart catheterization. COMPLICATION: None. LEVEL OF SEDATION: Moderate with sedation length of 15 minutes. PROCEDURE DESCRIPTION: After obtaining an informed consent, explaining the procedure, benefits, risks, complications and alternatives, the patient was brought to the transesophageal echocardiogram suite. A pulse oximetry and heart rate monitors were attached to the patient prior to the procedure. The patient's throat was sprayed using lidocaine locally. Following that, the patient was turned into left lateral position. A bite guard was placed and the patient was then sedated with the above doses of Versed and fentanyl in divided doses. Following that, the transesophageal echocardiogram probe was advanced through the bite guard into the mid esophagus where 2-D echocardiogram images as well as color Doppler images of various cardiac structures were obtained. We evaluated the interatrial septum using 2-D echocardiogram, color Doppler, and contrast study. The procedure was completed. There were no complications. FINDINGS: The left ventricular dimension and systolic function appeared to be within normal limits. The ejection fraction appeared to be in the range of 50% to 55%. The right ventricle appeared to be of normal size and function. The left atrium is mildly dilated. The right atrium appeared to be within normal limits for dimension. The left atrial appendage appeared to be free from any thrombus. The interatrial septum appeared to be intact. The aortic valve is trileaflet valve without stenosis or regurgitation. The mitral valve leaflets are thickened with evidence of moderate mitral regurgitation. The effective regurgitant orifice area was 0.2 cm2. Tricuspid valve and pulmonic valve appear to be within normal limits. CONCLUSION: 1. Normal left ventricular dimension and systolic function with ejection fraction of 55% to 60%. 2. Normal right ventricular dimension and systolic function. 3. Mild dilated left atrium. 4. Trileaflet aortic valve without stenosis or regurgitation. 5. Thickened mitral valve leaflets with moderate mitral regurgitation by color-flow Doppler as well as by quantitative measurements. The effective regurgitant orifice area was 0.2 cm2. 6. Normal tricuspid valve and pulmonic valve. 7. No evidence of pericardial effusion. MMODL / IJN: [id number] /
[2018-09-27] MEDS ORDERED: IOPAMIDOL-370 125ML BTL INJ ONE (11:30)
[2018-09-27] MEDS ORDERED: RX INFO: IV CONTRAST WAS GIVEN 1 EACH MISC MISCELLANE PRN (11:36)
[2018-09-27] MEDS ORDERED: SODIUM CHLORIDE 0.9% 1,000 ML IV SCH ×2 (11:45→13:01)
--- NOTE | 2018-09-27 12:00 | LTR ---
DATE OF SERVICE: September 27, 2018 RE: Elizabeth Allred Dear Dr. Wiggins; Ms. Elizabeth Allred underwent today transesophageal echocardiogram and heart catheterization as well. The transesophageal echocardiogram revealed only moderate mitral regurgitation. 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 Given the above findings, I did recommend maximized medical treatment and continue following up with her and assessing for progression in the severity of mitral regurgitation. I want to thank you for allowing us to participate in her care and please do not hesitate to call if you have any question or concern. Sincerely, Anival Mancilla MD MMABNERL / CAROLEEN: [id number] /
--- NOTE | 2018-09-27 12:08 | CC ---
CARDIAC CATHETERIZATION REPORT DATE OF SERVICE: 09/27/2018 PERFORMING PHYSICIAN: Anival Mancilla MD, Reconciliation Manager. PROCEDURE PERFORMED: 1. Selective right and left coronary angiogram. 2. Left heart catheterization. 3. Left ventriculography. INDICATION: This is a pleasant 68-year-old female patient with hypertension and dyslipidemia and mitral regurgitation, was brought today to undergo a ADELA and heart catheterization for further evaluation of moderate to severe mitral regurgitation. APPROACH: Right common femoral artery. COMPLICATION: None. LEVEL OF SEDATION: Moderate with sedation length of 15 minutes. PROCEDURE DESCRIPTION: After obtaining an informed consent, the patient was brought to the cardiac label stitcher. The right common femoral artery was cannulated using micropuncture technique, the micropuncture wire passed easily, then I placed a 6-Romansh sheath in the right common femoral artery. After that, I did selective right and left coronary angiogram using JR3.5 and JL3.5 catheters. Left heart catheterization and left ventriculography was performed using 6-Romansh pigtail catheter. The procedure was completed without any complication. SELECTIVE CORONARY ANGIOGRAM: 1. The RCA is a large caliber vessel and it is a dominant vessel. The RCA is chronically occluded in the midportion and fills by collateral from the left coronary system. 2. The left main is angiographically normal, it bifurcates into left circumflex and left anterior descending artery. 3. Left circumflex is a large caliber vessel. It is a nondominant vessel. The proximal circumflex appeared to have lesion in the range of 40% to 50% It gives rise into a large OM branch which has mild disease only and the circumflex continued after that as a small to medium caliber vessel in the AV groove. 4. The LAD. The proximal LAD appeared to have mild disease only. The mid LAD is angiographically normal and gives rise into a large diagonal branch which seems to be angiographically normal. The LAD distally appeared to be normal. 5. HEMODYNAMICS: The left ventricular end-diastolic pressure was 12 mmHg without significant gradient across aortic valve. 6. Left ventriculography was performed in the MARIN projection and using a power injection. The left ventricular systolic function is normal with EF of 55% with inferobasal hypokinesia consistent with possible inferior myocardial infarction. CONCLUSION: 1. Mild to moderate nonobstructive disease involving the left coronary system. 2. 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 3. Overall normal left ventricular systolic function with ejection fraction around 55% with inferobasal hypokinesia likely represent prior inferior myocardial infarction. 4. 2+ mitral regurgitation seen. POSTPROCEDURE MANAGEMENT: 1. Maximize medical treatment. 2. Continue monitor the mitral regurgitation. 3. Follow up with the patient. BETTIE / CLAIR: [id number] /
[2018-09-27] MEDS ORDERED: ATORVASTATIN 80 MG TAB PO STA (13:01)
[2018-09-27] MEDS ORDERED: ASPIRIN 325 MG TAB PO STA (13:01)
[2018-09-27] MEDS ORDERED: NITROGLYCERIN SL TABS 0.4 MG TAB SUBLINGUAL PRN (13:01)
[2018-09-27] MEDS ORDERED: ALPRAZolam 0.25 MG TAB PO PRN (13:01)
[2018-09-27] MEDS ORDERED: ALPRAZolam 0.5 MG TAB PO PRN (13:01)
[2018-09-27] MEDS ORDERED: ALBUTEROL NEBULIZED 2.5 MG/3 ML INHALATION STA (13:03)
[2018-09-27 16:04] VITALS: BP 95/51; PULSE 94; RESP 16
[2018-09-27] MEDS ORDERED: ALBUTEROL NEBULIZED 1.25 MG/3 ML INHALATION SCH (20:00)
[2018-09-27] MEDS ORDERED: ROPINIROLE HCL 12 MG PO SCH (21:00)
[2018-09-27] MEDS ORDERED: TOPIRAMATE 25 MG TAB PO SCH (21:00)
[2018-09-27] MEDS ORDERED: LEVOCETIRIZINE DIHYDROCHLORIDE 5 MG PO SCH (21:00)
[2018-09-28] MEDS ORDERED: PANTOPRAZOLE 40 MG TABLET PO SCH (07:30)
[2018-09-28] MEDS ORDERED: ESCITALOPRAM 5 MG TAB PO SCH (09:00)
[2018-09-28] MEDS ORDERED: FUROSEMIDE 40 MG TAB PO SCH (09:00)
[2018-09-28] MEDS ORDERED: ASPIRIN 81 MG PO SCH (09:00)
[2018-09-28] MEDS ORDERED: MONTELUKAST 10 MG TAB PO SCH (09:00)
== END 2018-09-27 18:06 | disposition home or self-care (01) ==
LOC: CATHCVL 08:30
PROVIDERS: ATTEND Internal Medicine Interventional Cardiology
DX: I34.0 Nonrheumatic mitral (valve) insufficiency (principal); I25.10 Atherosclerotic heart disease of native coronary artery without angina pectoris; I25.82 Chronic total occlusion of coronary artery; I11.0 Hypertensive heart disease with heart failure; I50.32 Chronic diastolic (congestive) heart failure; E78.5 Hyperlipidemia, unspecified; E78.00 Pure hypercholesterolemia, unspecified; J44.9 Chronic obstructive pulmonary disease, unspecified; E11.9 Type 2 diabetes mellitus without complications; Z79.84 Long term (current) use of oral hypoglycemic drugs; Z79.82 Long term (current) use of aspirin; Z79.899 Other long term (current) drug therapy; Z88.0 Allergy status to penicillin; Z82.49 Family history of ischemic heart disease and other diseases of the circulatory system
CPT/HCPCS: 94640; 93312; 93320; 93325; 93458; C1894; C1769 ×2; J2001; J3010; Q9967; J2250

== ENCOUNTER → 2019-01-13 | Day surgery (SDC) | payer MEDICARE ==
[2019-01-11 11:07] VITALS: BMI 16.7
[~2019-01-13] MED LIST changes: +ADENOSINE 90 MG in SODIUM CHLORIDE 0.9% 60 ML IVP ONE; +ALPRAZolam 0.5 MG TAB PO PRN; -ASPIRIN 325 MG TAB PO ONE; +ASPIRIN 325 MG TAB PO STA; +ATORVASTATIN 80 MG TAB PO STA; +BIVALIRUDIN 250 MG in SODIUM CHLORIDE 0.9% 50 ML IV ONE; +BIVALIRUDIN BOLUS 250 MG/50 ML IV ONE; +IOPAMIDOL-370 125ML BTL INJ ONE; +LIDOCAINE 1% INJ 10MG/ML (20 ML MDV) ONE; +LIDOCAINE 1% INJ 10MG/ML (20 ML MDV) SQ ONE; +MIDAZOLAM 2 MG/2 ML VIAL IV ONE; +NITROGLYCERIN SL TABS 0.4 MG TAB SUBLINGUAL PRN; +RX INFO: IV CONTRAST WAS GIVEN 1 EACH MISC MISCELLANE PRN; +SODIUM CHLORIDE 0.9% 1,000 ML IV SCH
[2019-01-13 09:56] VITALS: RESP 18; TEMP 97.9
[2019-01-13 09:59] LABS: Glucose,Whole Blood 88 mg/dL (75-99)
[2019-01-13 10:09] LABS: Anisocytosis Slight; HCT 35.4 % (34.0-46.0); HGB 10.7 gm/dL (11.4-16.0); Hypochromasia Slight; MCH 25.5 pg (25.0-35.0); MCHC 30.2 g/dL (31.0-37.0); MCV 84.6 fL (80.0-100.0); Platelet Count 197 k/uL (150-450); RBC 4.18 m/uL (3.80-5.40); RDW 17.6 % (11.5-15.5); WBC 4.8 k/uL (3.8-10.6)
[2019-01-13 10:22] LABS: Potassium 4.1 mmol/L (3.5-5.1)
[2019-01-13 11:11] LABS: Eosinophils # (M) 0.05 k/uL (0-0.7); Lymphocytes # (M) 1.63 k/uL (1.0-4.8); Monocytes # (M) 0.19 k/uL (0-1.0); Neutrophils # (M) 2.93 k/uL (1.3-7.7); Neutrophils % (M) 61 %; Nucleated Red Blood Cells 0 /100 WBC (0-0); Total Cells Counted 100
[2019-01-13 11:12] LABS: Ovalocytes Present; Poikilocytosis (M) Present
--- NOTE | 2019-01-13 12:50 | PCN ---
PROCEDURE NOTE CARDIAC PROCEDURE: DATE OF SERVICE: January 13, 2019 PERFORMING PHYSICIAN: Anival Mancilla MD. PROCEDURE PERFORMED: Fractional flow reserve FFR of the left circumflex coronary artery. INDICATION: This is a 68-year-old female patient with history of coronary artery disease and known intermediate to severe disease involving the left circumflex continues to be symptomatic in term of shortness of breath with exertion. She underwent myocardial perfusion imaging stress test and that revealed lateral ischemia. She was brought today to undergo an intervention of the left circumflex. APPROACH: Right common femoral artery. COMPLICATION: None. LEVEL OF SEDATION: Moderate with sedation length of 27 minutes. PROCEDURE DESCRIPTION: After obtaining informed consent, the patient was brought to the cardiac senior label specialist. The right common femoral artery was cannulated using micropuncture technique, the micropuncture wire passed easily then I placed a 6-Cameroonian sheath. I did after that start anticoagulation with Angiomax. After that we did an FFR of the left circumflex coronary artery. After zeroing the Doppler wire and equalizing between the Doppler wire and the guiding catheter, we did an FFR per IV adenosine infusion. The FFR came in to be 0.86, which is above the ischemic threshold. CONCLUSION: 1. Fractional flow reserve, FFR, of the left circumflex was done and came into be nonischemic at 0.86. POSTPROCEDURE MANAGEMENT: 1. Medical treatment. 2. Follow up with the patient. MMODL / IJN: [id number] /
[2019-01-13 14:41] VITALS: PULSE 55
[2019-01-13 16:06] VITALS: BP 121/60
== END ==
LOC: CATHCVL 09:15
PROVIDERS: ATTEND Internal Medicine Interventional Cardiology
DX: I25.119 Atherosclerotic heart disease of native coronary artery with unspecified angina pectoris (principal); I25.82 Chronic total occlusion of coronary artery; I34.0 Nonrheumatic mitral (valve) insufficiency; I11.0 Hypertensive heart disease with heart failure; I50.32 Chronic diastolic (congestive) heart failure; E78.00 Pure hypercholesterolemia, unspecified; J44.9 Chronic obstructive pulmonary disease, unspecified; E78.5 Hyperlipidemia, unspecified; E11.9 Type 2 diabetes mellitus without complications; M25.50 Pain in unspecified joint; R63.6 Underweight; Z68.1 Body mass index [BMI] 19.9 or less, adult; Z79.899 Other long term (current) drug therapy; Z79.82 Long term (current) use of aspirin; Z79.84 Long term (current) use of oral hypoglycemic drugs; Z88.0 Allergy status to penicillin; Z91.040 Latex allergy status; Z82.49 Family history of ischemic heart disease and other diseases of the circulatory system
CPT/HCPCS: 93571; 93454; 80048; 85025; C1760; C1887; C1769 ×3; J2250; J2001; J0583; J0153; Q9967

== ENCOUNTER → 2019-02-14 | Outpatient (CLI) | payer MEDICARE ==
[2019-02-14 13:18] LABS: Anisocytosis Slight; HCT 34.4 % (34.0-46.0); HGB 10.8 gm/dL (11.4-16.0); Hypochromasia Marked; MCH 27.3 pg (25.0-35.0); MCHC 31.3 g/dL (31.0-37.0); MCV 87.2 fL (80.0-100.0); Mean Platelet Volume 7.4; Platelet Count 249 k/uL (150-450); RBC 3.94 m/uL (3.80-5.40); RDW 17.5 % (11.5-15.5); WBC 6.8 k/uL (3.8-10.6)
[2019-02-14 13:46] LABS: Potassium 4.7 mmol/L (3.5-5.1)
== END | disposition home or self-care (01) ==
LOC: LABPAT 12:46
PROVIDERS: ATTEND Internal Medicine Interventional Cardiology
DX: Z01.812 Encounter for preprocedural laboratory examination (principal); I25.119 Atherosclerotic heart disease of native coronary artery with unspecified angina pectoris
CPT/HCPCS: 36415; 80051; 82565; 84520; 85027

== ENCOUNTER 2019-02-16 10:24 | Day surgery (SDC) | payer MEDICARE ==
[2019-02-15 08:49] VITALS: BMI 17.2
[~2019-02-16 10:24] MED LIST changes: -ADENOSINE 90 MG in SODIUM CHLORIDE 0.9% 60 ML IVP ONE; -BIVALIRUDIN 250 MG in SODIUM CHLORIDE 0.9% 50 ML IV ONE; -BIVALIRUDIN BOLUS 250 MG/50 ML IV ONE; -IOPAMIDOL-370 125ML BTL INJ ONE; -LIDOCAINE 1% INJ 10MG/ML (20 ML MDV) ONE; -LIDOCAINE 1% INJ 10MG/ML (20 ML MDV) SQ ONE; -MIDAZOLAM 2 MG/2 ML VIAL IV ONE; -RX INFO: IV CONTRAST WAS GIVEN 1 EACH MISC MISCELLANE PRN; -SODIUM CHLORIDE 0.9% 1,000 ML IV SCH
[2019-02-16 10:50] LABS: Glucose,Whole Blood 75 mg/dL (75-99)
[2019-02-16] MEDS ORDERED: MIDAZOLAM 2 MG/2 ML VIAL IV ONE (12:14)
[2019-02-16] MEDS ORDERED: LIDOCAINE 1% INJ 10MG/ML (20 ML MDV) SQ ONE (12:18)
[2019-02-16] MEDS ORDERED: BIVALIRUDIN BOLUS 250 MG/50 ML IV ONE (12:19)
[2019-02-16] MEDS: NITROGLYCERIN 1000MCG/10ML SYRINGE INTRACORON ONE ×2 (12:21→12:29)
[2019-02-16] MEDS ORDERED: BIVALIRUDIN 250 MG in SODIUM CHLORIDE 0.9% 50 ML IV ONE (12:22)
[2019-02-16] MEDS ORDERED: CLOPIDOGREL 75 MG TAB PO ONE (12:29)
[2019-02-16] MEDS ORDERED: IOPAMIDOL-370 100ML BTL INJ ONE (12:33)
[2019-02-16] MEDS ORDERED: ONDANSETRON 4 MG TAB PO PRN (12:37)
[2019-02-16] MEDS ORDERED: ACETAMINOPHEN TAB 500 MG TAB PO PRN (12:37)
[2019-02-16] MEDS ORDERED: IBUPROFEN 600 MG TAB PO PRN (12:37)
[2019-02-16] MEDS ORDERED: NITROGLYCERIN SL TABS 0.4 MG TAB SUBLINGUAL PRN (12:39)
[2019-02-16] MEDS ORDERED: ATROPINE SULFATE 0.1 MG/ML 10ML SYRINGE IV PRN (12:39)
[2019-02-16] MEDS ORDERED: ZOLPIDEM 5 MG TAB PO PRN (12:39)
[2019-02-16] MEDS ORDERED: MAG HYDROX/AL HYDROX/SIMETH 30 ML CUP PO PRN (12:39)
[2019-02-16] MEDS ORDERED: RX INFO: IV CONTRAST WAS GIVEN 1 EACH MISC MISCELLANE PRN (12:39)
[2019-02-16] MEDS ORDERED: SODIUM CHLORIDE 0.9% 1,000 ML IV SCH (12:45)
--- NOTE | 2019-02-16 13:06 | PTCA ---
PERCUTANEOUSTRANS CORORONARY ANGIOGRAPHY PERCUTANEOUS CORONARY INTERVENTION: DATE OF SERVICE: 02/16/2019 PERFORMING PHYSICIAN: Anival Mancilla MD. PROCEDURE PERFORMED: Successful stenting of the proximal left circumflex using 3.5 x 15 mm Xience NATI with an excellent angiographic results and reduction of stenosis from 70% to 0%. INDICATION: This is a 68-year-old female patient with coronary artery disease and known chronic total occlusion of the RCA, known also to have intermediate to severe lesion involving the left circumflex with an FFR was performed and came in to be 0.86, continues to have chest discomfort with exertion, concerning for angina. Initially, she was treated medically, but she continues to have symptoms of angina. Because of that, she was brought today to undergo an intervention on the left circumflex. APPROACH: Right common femoral artery. COMPLICATION: None. LEVEL OF SEDATION: Moderate with sedation length of 17 minutes. PROCEDURE DESCRIPTION: After obtaining an informed consent, the patient was brought to the cardiac track laborer. The right common femoral artery was cannulated using micropuncture technique and a micropuncture wire passed easily, then I placed a 6-Sammarinese sheath in the right common femoral artery. After that, I started anticoagulation with Angiomax. The left main was engaged using JL3.5 guide. I did wire the left circumflex using a run-through wire. After that I did direct stenting on the lesion using 3.5 x 15 mm Xience NATI where the stent was positioned under fluoroscopy guidance and deployed under 12 atmospheres for 20 seconds with the following angiogram showed good angiographic results and the procedure was completed without any complication. POSTPROCEDURE MANAGEMENT: 1. Dual anti-platelet therapy. 2. Risk factors modifications. 3. Follow up with the patient. MMODL / IJN: [id number] /
[2019-02-16 13:54] LABS: Glucose,Whole Blood 94 mg/dL (75-99)
[2019-02-16 17:03] LABS: Glucose,Whole Blood 76 mg/dL (75-99)
[2019-02-16] MEDS: ISOSORBIDE MONONITRATE ER 15 MG TAB PO SCH (20:12)
[2019-02-16] MEDS ORDERED: PANTOPRAZOLE 40 MG TABLET PO SCH (21:00)
[2019-02-16] MEDS ORDERED: LORATADINE 10 MG TAB PO SCH (21:00)
[2019-02-16] MEDS ORDERED: TOPIRAMATE 25 MG TAB PO SCH (21:00)
[2019-02-16] MEDS ORDERED: ATORVASTATIN 40 MG TAB PO SCH (21:00)
[2019-02-16] MEDS: ALBUTEROL NEBULIZED 1.25 MG/3 ML INHALATION SCH (21:08)
[2019-02-16 21:16] LABS: Glucose,Whole Blood 94 mg/dL (75-99)
[2019-02-16] MEDS: rOPINIRole HCL 4 MG TABLET PO SCH (23:14)
[2019-02-17 04:12] VITALS: TEMP 98.1
[2019-02-17 06:03] VITALS: RESP 18
[2019-02-17 06:14] LABS: Glucose,Whole Blood 93 mg/dL (75-99)
[2019-02-17 07:00] LABS: Anisocytosis Slight; Basophils % (A) 0 %; Eosinophils # (A) 0.1 k/uL (0-0.7); Eosinophils % (A) 3 %; HCT 33.6 % (34.0-46.0); HGB 10.6 gm/dL (11.4-16.0); Hypochromasia Marked; Lymphocytes # (A) 1.2 k/uL (1.0-4.8); Lymphocytes % (A) 26 %; MCH 27.3 pg (25.0-35.0); MCHC 31.4 g/dL (31.0-37.0); MCV 86.9 fL (80.0-100.0); Mean Platelet Volume 7.5; Monocytes # (A) 0.2 k/uL (0-1.0); Monocytes % (A) 5 %; Neutrophils % (A) 63 %; Platelet Count 216 k/uL (150-450); RBC 3.87 m/uL (3.80-5.40); RDW 17.7 % (11.5-15.5); WBC 4.7 k/uL (3.8-10.6)
[2019-02-17 07:15] LABS: Calcium 8.8 mg/dL (8.4-10.2); Potassium 4.7 mmol/L (3.5-5.1)
[2019-02-17] MEDS: ALBUTEROL NEBULIZED 1.25 MG/3 ML INHALATION SCH ×2 (08:43→08:51)
[2019-02-17] MEDS ORDERED: ESCITALOPRAM 10 MG TAB PO SCH (09:00)
[2019-02-17] MEDS ORDERED: MULTIVITAMINS, THERA 1 EACH TAB PO SCH (09:00)
[2019-02-17] MEDS ORDERED: ASPIRIN 81 MG PO SCH (09:00)
[2019-02-17] MEDS ORDERED: METOPROLOL SUCCINATE (ER) 25 MG TAB.ER.24H PO SCH (09:00)
[2019-02-17] MEDS ORDERED: MONTELUKAST 10 MG TAB PO SCH (09:00)
[2019-02-17] MEDS ORDERED: FUROSEMIDE 40 MG TAB PO SCH (09:00)
[2019-02-17] MEDS: rOPINIRole HCL 4 MG TABLET PO SCH (09:11)
[2019-02-17] MEDS: ISOSORBIDE MONONITRATE ER 15 MG TAB PO SCH (09:11)
[2019-02-17 09:17] VITALS: BP 103/53; PULSE 85
--- NOTE | 2019-02-17 09:21 | DS ---
DISCHARGE SUMMARY ADMISSION DATE: February 16, 2019 DISCHARGE DATE: February 17, 2019 BRIEF HISTORY: This is a 68-year-old female patient who underwent yesterday successful stenting of the left circumflex coronary artery with an excellent angiographic result and without any complication from right groin approach. The patient is going to be discharged home on dual antiplatelet therapy and I will follow up with the patient next week in the office. MMURIEL / CLAIR: [id number] /
[2019-02-17] MEDS ORDERED: CLOPIDOGREL 75 MG TAB PO SCH (12:00)
== END 2019-02-17 12:03 | disposition home or self-care (01) ==
LOC: CATHCVL 10:24 → 3SCARD 16:10 → CATHCVL 02-17 12:03
PROVIDERS: ATTEND Internal Medicine Interventional Cardiology
DX: I25.119 Atherosclerotic heart disease of native coronary artery with unspecified angina pectoris (principal); I11.0 Hypertensive heart disease with heart failure; I50.32 Chronic diastolic (congestive) heart failure; I34.0 Nonrheumatic mitral (valve) insufficiency; J44.9 Chronic obstructive pulmonary disease, unspecified; E78.5 Hyperlipidemia, unspecified; E11.9 Type 2 diabetes mellitus without complications; I65.23 Occlusion and stenosis of bilateral carotid arteries; Z79.899 Other long term (current) drug therapy; Z79.82 Long term (current) use of aspirin; Z79.891 Long term (current) use of opiate analgesic; Z79.84 Long term (current) use of oral hypoglycemic drugs; Z88.0 Allergy status to penicillin; Z82.49 Family history of ischemic heart disease and other diseases of the circulatory system
CPT/HCPCS: 80048; 85025; 92928; C9600; C1887; C1769 ×3; C1894; C1874; J2250; J2001; J0583; Q9967